=== PATIENT | female | born 1950 | race Caucasian/White ===

== ENCOUNTER → 2024-02-12 13:55 | Outpatient (REF) | payer MEDICARE, BC, SELFPAY | LOC: HWEVLT 13:55 | PROVIDERS: ATTENDING PHYSICIAN Radiology Vascular & Interventional Radiology | DX: I83.893 Varicose veins of bilateral lower extremities with other complications (principal) | CPT/HCPCS: 93970 ==

== ENCOUNTER → 2024-09-16 13:14 | Outpatient (REF) | payer MEDICARE, BC, SELFPAY | LOC: HWWDC 13:14 | PROVIDERS: ATTENDING PHYSICIAN Physician Assistant Medical | DX: Z12.31 Encounter for screening mammogram for malignant neoplasm of breast (principal) | CPT/HCPCS: 77063; 77067 ==

== ENCOUNTER 2025-02-09 19:51 | Inpatient (IN) | payer MEDICARE, BC, SELFPAY ==
[2025-02-09] VITALS (8 sets, daily range): BP systolic 122–170; BP diastolic 65–92; BMI 23.7; BMI 23.9
--- NOTE | 2025-02-09 12:27 | ED.GENMED ---
History of Present Illness
General
Chief Complaint: Flank Pain
Source: patient
Exam Limitations: none
Time Seen by Provider: 02/09/25 12:09
Nursing documentation reviewed up to this point in time: agreed with
History of Present Illness
History of Present Illness:
The patient is a 74-year-old female presenting with right-side abdominal and back pain radiating down her leg. The pain began yesterday. Initially, the pain was intermittent but became constant today. The patient reports nausea, having experienced
'a couple gags' and vomiting. She denies fever and urinary discomfort. patient was recently diagnosed with a UTI by her family doctor last week and is currently taking Macrobid. She describes the pain as starting in the right side and moving down
to her groin and leg. She notes tenderness in the right lower quadrant. The patient took ibuprofen, which provided some relief. Movement exacerbates the pain, and she describes it as sore currently.
Past History
Past History
ED Past Medical History: HTN, Hypercholesterolemia and Other (Kidney stones)
ED Past Surgical History: Other ( and colon cancer)
Social History
Tobacco: Non-smoker
Alcohol: Occasional
Drug: None
Personal:
Living: with family
Review of Systems
Review of Systems
Allergies reviewed?: Yes
All Other Systems: ROS reviewed and negative except as documented in HPI and ROS
Constitutional: Reports no symptoms; Denies fever, fatigue or chills
Respiratory: Reports no symptoms
Cardiac: Reports no symptoms
ABD/GI: Reports abdominal pain, nausea, vomiting and other (Dry heaving vomiting)
: Reports no symptoms; Denies flank pain
Musculoskeletal: Reports back pain (Right lower back pain)
Skin: Reports no symptoms
Neurological: Reports no symptoms
Psychiatric: Reports no symptoms
Phy Exam
General Physical Exam
General Presentation: no apparent distress
General age: appears stated age
General Skin: warm and dry
General Habitus: normal
General Mental: alert
General Hydration: appears well hydrated
Cardiovascular Exam
Cardiovascular Exam: regular rate/rhythm, no murmur and normal peripheral pulses
Pulmonary Exam
Pulmonary Exam: lungs clear and no respiratory distress
Gastrointestinal Exam
Gastrointestinal Exam: soft and other (+ tender rlq )
Neurological Exam
Neurological Exam: alert and oriented x3
Musculoskeletal Exam
Musculoskeletal Exam: full ROM
Skin Exam
Skin Exam: normal color and warm/dry
Psychiatric Exam
Psychiatric Exam: normal mood/affect
Course
Orders/Labs/Results
Orders:
Orders
02/09/25 12:45
CT Abd/pel W Iv And Oral Contr Urgent
Comment:
Reason For Exam: rlq pain
IV Insert/Care/Rem.- Treatment PRN
0.9% Sodium Chloride 1000 ml [Nss] 1,000 ml IV BOLUS
Iohexol [Omnipaque] See Protocol PO NOW STA
02/09/25 12:55
Complete Blood Count/With Diff Urgent
Comprehensive Metabolic Panel Urgent
Lipase Urgent
Urinalysis Reflex To Culture Urgent
Date Specimen was Collected: 02/09/25
Time Specimen was Collected: 12:46
Urine Microscopic Reflex Cult Urgent
02/09/25 12:58
Ondansetron Injectable [Zofran] 4 mg .ROUTE .[facility]
Ondansetron Injectable [Zofran] 4 mg IV NOW STA
02/09/25 13:11
Morphine Sulfate 2 mg IV NOW STA
02/09/25 Dinner
Regular
At Your Request: Full Participation
Does patient need a safe tray?: No
02/09/25 18:24
Morphine Sulfate 4 mg IV NOW STA
02/09/25 18:25
US Pelvis Only (non-obstetric) Urgent
Comment:
Reason For Exam: rlq pain/ mass
02/09/25 18:55
Admit/Transfer Patient As Directed
Co-Sign Provider:
Level of Care: Inpatient admission
Assign to:: Medical/Surgical
Physician / Group: Edna
Diagnosis: Adnexal mass
Reason for Hospitalization: painful adnexal mass
Expected length of stay greater than two midnights?: Yes
ELOS- Estimated Length of Stay in days: 2
I certify the patient meets the requirements for IP care: Yes
PRN Pain Medication Management As Directed
May give lesser potent ordered pain med per pt: Yes
preference::
Protocol:: Medication orders for pain may be administered in a
manner that supports deferring to patient preference
when the pt is:
- Requesting an ordered lesser potent pain medication.
Least to most potent pain medications are defined
as: acetaminophen < NSAID < tramadol < opioids
(morphine, oxycodone, hydromorphone).
- Requesting a lesser dose of the same medication IF
ORDERED.
- Requesting a less intrusive route of administration
if both routes are prescribed by the provider (PO <
IV).
02/09/25 18:57
Code Status As Directed
Resuscitation Status: Full Code
02/09/25 20:42
Acetaminophen [Tylenol] 650 mg PO Q4HPRN PRN
Bisacodyl [Dulcolax] 10 mg RECTAL [id number] PRN
Docusate W/Senna [Senokot-S] 1 tablet PO BIDPRN PRN
Ketorolac [Toradol] 10 mg IV Q6HPRN PRN
Morphine Sulfate 2 mg IV Q4HPRN PRN
Nitrofurantoin Monohydrate [Macrobid] 100 mg PO BID
Ondansetron Injectable [Zofran] 4 mg IV Q6HPRN PRN
Polyethylene Glycol Powder [Miralax] 17 grams PO DAILYPRN PRN
02/09/25 20:42
Activity As Directed
Activity Level: With Assistance
Vital Signs As Directed
Frequency: Per unit guidelines
Pulse Ox/spot Check [RESP] Routine
Quantity: 1
DX Deep Vein Thrombosis Video Routine
02/09/25 22:00
Diltiazem Extended Release [Cardizem Cd] 180 mg PO HS
02/10/25 06:39
Basic Metabolic Panel IN AM
CA 125 IN AM
Complete Blood Count/No Diff IN AM
02/10/25 18:00
Atorvastatin [Lipitor] 20 mg PO QPM
Enoxaparin Sodium [Lovenox] 40 mg SC QPM
Abnormal Lab Results
02/09/25
12:55
MCH 32.8 H pg
(27.0-31.0)
MPV 11.9 H fL
(7.4-10.4)
Absolute Lymphs (auto) 0.8 L 10^3/uL
(1.2-3.4)
Neutrophils % 79.6 H %
(42.2-75.2)
Lymphocytes % 10.9 L %
(20.5-51.1)
Creatinine 0.5 L mg/dL
(0.6-1.0)
Glucose 120 H mg/dl
(70-99)
Calcium 10.5 H mg/dl
(8.4-10.2)
Urine Ketones 1+ A
(Negative)
Urine Bacteria (Reflex) Few A
(Negative)
Urine Albumin (Reflex) 1+ A
(Neg - Trace)
02/09/25 12:55
02/09/25 12:55
Vital Signs
Initial and Last Documented VS:
Initial Vital Signs
Temp Pulse Resp BP Pulse Ox
98.3 F 81 18 170/78 97
02/09/25 11:14 02/09/25 11:14 02/09/25 11:14 02/09/25 11:14 02/09/25 11:14
Last Documented Vital Signs
Temp Pulse Resp BP Pulse Ox
98.3 F 82 16 122/65 96
02/09/25 23:00 02/09/25 23:00 02/09/25 23:00 02/09/25 23:00 02/09/25 23:00
MDM/Problems Addressed
Differential Diagnosis Includes:
The Differential Diagnosis includes, in no particular order and is not limited to:. Kidney stones
Appendicitis. Urinary tract infection Diverticulitis. Pyelonephritis Musculoskeletal pain Gallstones
Hernia
MDM/Problems Addressed:
Patient is a 74-year-old female who presents to the ER with right-sided abdominal pain into back. Patient has required IV narcotics here intermittently uncomfortable. CAT scan was done which is a large slightly complex right adnexal cystic mass
differential includes neoplasm less likely torsion recommended dedicated pelvic ultrasound.
I did review all findings the patient the patient required IV pain medications would recommend admission. Additional morphine given. Pelvic ultrasound ordered.
*Radiology
Radiology exam reviewed: radiology read reviewed
*Pulse Oximetry
Patient hypoxic: no
*Critical Care Note
Total Time (30-74mins, 75-104mins- exclusive of procedures): Not Applicable
ED Attending Note
-
Portions of this chart may have been created with voice recognition software.� Occasional wrong word or��sound alike� substitutions may have occurred due to the inherent limitations of voice recognition software.
Discharge Plan
Departure
Patient Disposition: Admit
Date of Disposition: 02/09/25
Time of Disposition: 18:28
Admit to doctor: hospitalist
Presentation/result/management discussed w/ accepting MD/DO: Hospitalist
Patient with high blood pressure during this ER visit?: Yes
Condition: Fair
Covid-19: Not Applicable
Discharge Problem:
ovarian mass
Interventions
Interventions:
*Risk Screen - Suicide Last Done: 02/09/25 21:00
*General Assessment Last Done: 02/09/25 11:14
*Neglect/Abuse Screening Last Done: 02/09/25 13:10
*ED- Fall Risk Assessment Last Done: 02/09/25 13:10
*ED COVID-19 Vaccine History Last Done: 02/09/25 21:00
*Nursing Disposition Last Done: 02/09/25 20:41
RD-Kgckan-Nvvjhkymri Assessment Last Done: 02/09/25 13:10
ED-Female Genitourinary Assessment Last Done: 02/09/25 13:10
Discharge Date and Time
Discharge Date/Time: 02/09/25 20:42
[2025-02-09] MEDS: ZOFRAN 4 MG IV (13:02)
[2025-02-09] MEDS: OMNIPAQUE 50 ML PO (13:02)
[2025-02-09] MEDS: NSS 1000 IV (13:03)
[2025-02-09 13:04] LABS: % Basophils 0.4 % (0-2); % Eosinophils 0.3 % (0-6); % Immature Granulocytes 0.3 % (0-0.5); % Lymphocytes 10.9 % (20.5-51.1); % Monocytes 8.5 % (1.7-9.3); % Neutrophils 79.6 % (42.2-75.2); Absolute Lymphocytes 0.8 10^3/uL (1.2-3.4); Absolute Monocytes 0.6 10^3/uL (0.1-0.6); Absolute Neutrophils 5.8 10^3/uL (1.4-6.5); Hematocrit 43.5 % (37.0-47.0); Hemoglobin 14.8 g/dL (12.0-16.0); Mean Corpuscular Hgb 32.8 pg (27.0-31.0); Mean Corpuscular Volume 96.5 fL (81.0-99.0); Mean Platelet Volume 11.9 fL (7.4-10.4); Nucleated Red Blood Cells % 0 %; Platelet Count 168 10^3/uL (130-400); Red Blood Cell Count 4.51 10^6/uL (4.20-5.40); Red Cell Dist. Width 13.1 % (11.5-14.5); White Blood Cell Count 7.3 10^3/uL (4.8-10.8)
[2025-02-09 13:06] LABS: Urine Albumin 1+ (Neg - Trace); Urine Bilirubin Negative (Negative); Urine Character Clear (Clear); Urine Color Yellow; Urine Glucose Negative (Negative); Urine Ketone 1+ (Negative); Urine Leukocyte Negative (Negative); Urine Nitrite Negative (Negative); Urine Occult Blood Negative (Negative); Urine Urobilinogen Negative (Neg - 1+)
[2025-02-09] MEDS: MORPHINE SULFATE 2 MG IV (13:14)
[2025-02-09 13:32] LABS: ALT (SGPT) 24 U/L (0-35); AST (SGOT) 31 U/L (14-36); Albumin 4.5 g/dl (3.5-5.0); Alkaline Phosphatase 112 U/L (38-126); Blood Urea Nitrogen 14 mg/dl (7-17); Calcium 10.5 mg/dl (8.4-10.2); Carbon Dioxide 26 mmol/L (22-30); Chloride 105 mmol/L (98-107); Estimated Creatinine Clearance 79 ml/min; Glucose 120 mg/dl (70-99); Lipase 236 U/L (23-300); Potassium 4.2 mmol/L (3.5-5.1); Sodium 138 mmol/L (135-145); Total Bilirubin 0.5 mg/dl (0.2-1.3); Total Protein 7.6 g/dl (6.3-8.2); eGFR > 60.00
[2025-02-09 13:50] LABS: Urine Bacteria Few (Negative); Urine Mucus Moderate; Urine Red Blood Cell 0-2 /HPF (0-2)
[2025-02-09 14:35] LABS: Urine Squamous Cell 0-2 /LPF (Few)
--- NOTE | 2025-02-09 18:35 | HPS.HSE ---
Family Physician
-
Family Physician: Corinne Crump
Chief Complaint
-
Abdominal pain
History of Present Illness
Patient is a 74-year-old female with past medical history of colon cancer s/p resection, hypertension presenting to the emergency department with 2 right-sided abdominal and back pain radiating down to her leg.
Patient reports onset of symptoms at 1 year ago. Initially intermittent but now constant. She reports nausea and occasional episode of vomiting. She denies any dysuria. She denies urinary frequency or urgency. She had been recently diagnosed
with a urinary tract infection by PMD and is currently on Macrobid. She denies having any diarrhea. She denies any melena or hematochezia. Patient reports tenderness in the right lower quadrant for which she took ibuprofen with some improvement.
Pain is worse with movement. She denies any abdominal bloating.
She reports history of colon cancer status post resection. She stated it was stage I at a time and did not receive any adjuvant chemotherapy or radiation treatment.
In the emergency department patient was afebrile, blood pressure of 160/82 with a pulse rate of 98 satting 96% on room air.
LFTs were within normal limits. Lipase was normal. UA was unremarkable. The CBC was completely within normal limits. Electrolytes were normal. BUN and creatinine were normal.
A CT of the abdomen pelvis shows a large slightly complex right adnexal cystic mass measuring 16 x 9.5 x 11 cm which is new from prior CT in 2021. There is also left hepatic lobe atrophy with diffusely dilated intrahepatic biliary ducts throughout
with shrunken left hepatic lobe which appeared chronic.
Medical History
Past Medical History
Past Medical History: Reports Other
Additional Past Medical History:
History of colon cancer status post bowel resection
Hypertension
Skin cancer
Past Surgical History: Reports Bowel Resection and
Social History
Tobacco: Non-smoker
Alcohol: None
Drug: None
Personal:
Living: With Family
Family History
Family History: Not pertinent
Allergies / Home Medications
Allergies reflects when Allergies were last updated in [facility].
Home Medications with original date entered in [facility]
Allergy/Medication List:
Allergies
Allergy/AdvReac Type Severity Reaction Status Date / Time
Penicillins Allergy Unknown Verified 02/09/25 11:13
Home Medications
atorvastatin 20 mg tablet 20 mg PO QPM High cholesterol 01/25/22
diltiazem HCl 180 mg capsule,extended release 24 hr 180 mg PO HS Blood pressure 01/25/22
ibandronate 150 mg tablet 150 mg PO QMONTH 02/09/25
ibuprofen 400 mg tablet 400 mg PO Q6HPRN PRN mild pain 02/09/25
nitrofurantoin monohydrate/macrocrystals 100 mg capsule (Macrobid) 100 mg PO BID 02/09/25
therapeutic multivitamin 1 tab PO DAILY 02/09/25
Review of Systems
-
Constitutional: Reports No Symptoms
EENT: Reports No Symptoms
Respiratory: Reports No Symptoms
Cardiac: Reports No Symptoms
Abdomen/GI: Reports Abdominal Pain and Nausea
: Reports No Symptoms
Musculoskeletal: Reports No Symptoms
Skin: Reports No Symptoms
Neurological: Reports No Symptoms
Endocrine: Reports No Symptoms
Hematologic/Lymphatic: Reports No Symptoms
Psych: Reports No Symptoms
Physical Exam
Vital Signs
Vital Signs
Temp Pulse Resp BP Pulse Ox
98.3 F 98 18 163/82 96
02/09/25 11:14 02/09/25 17:12 02/09/25 17:12 02/09/25 17:12 02/09/25 17:12
Physical Exam
General: Well Developed, Well Nourished and No Apparent Distress
HEENT: NormoCephalic, Moist mucous membranes and Atraumatic
Respiratory: Clear
Cardiac: S1/S2 and Regular Rhythm; No Murmur or Rub
GI: Soft, Non Tender, Non Distended and Normal Bowel Sounds; No Organomegaly
Rectal: Deferred by Provider
Musculoskeletal: No Clubbing, No Cyanosis and No Edema
Skin: No Rash
Neuro: Nonfocal/grossly intact
Laboratory Results
-
02/09/25 12:55
02/09/25 12:55
Laboratory Results
Total Bilirubin 0.5 mg/dl (0.2-1.3) 02/09/25 12:55
AST 31 U/L (14-36) 02/09/25 12:55
ALT 24 U/L (0-35) 02/09/25 12:55
Alkaline Phosphatase 112 U/L (38-126) 02/09/25 12:55
Lipase 236 U/L (23-300) 02/09/25 12:55
Data Reviewed
-
CT Scan: Report Reviewed by me
Lab Data: Labs Reviewed by me
Old Records: Reviewed
Impression/Plan
-
IMPRESSION:
74-year-old female with past medical history of colon cancer status post resection, hypertension, hyperlipidemia presenting to the emergency department with right-sided abdominal and flank pain associated nausea and vomiting found to have a rather
large adnexal cystic mass consisting of a 16.1 x 9.5 x 11.3 cm slightly complex cystic mass concerning for ovarian neoplasm and less likely ovarian torsion. She currently reports the pain of 4 out of 10. No kidney stones. No urinary symptoms at
moment. No fevers or chills.
PLAN:
1. Cystic Adnexal Mass, slightly complex concerning for neoplasm. Unlikely torsion. Severe pain requiring narcotics.
- admit to med/surg observation
- pelvic u/s,MRI w/ w/o contrast
- check ca 125, CEA and CA 19-9
- pain control
- farm mechanic consulted and notified
2. Liver lobe atrophy and ductal dilation with some concerning for malignant/metastatic process - New from prior. Normal lfts. No RUQ pain or discomfort. Normal lipase.
- obtaining mri of the abdomen as well as pelvis above
- likely outpatient GI depending on mri findings
continue her home meds and complete course of macrobid (day 03/07 today)
DVT PPX - lovenox sq
Code status - Full code
[2025-02-09] MEDS: MORPHINE SULFATE 4 MG IV (18:51)
[2025-02-09] MEDS: CARDIZEM CD 180 MG PO (21:17)
[2025-02-09] MEDS: MACROBID 100 MG PO (21:17)
--- NOTE | 2025-02-09 21:29 | PTCARENOTE ---
Patient arrived to unit around 20:40 with dx of adnexal Mass. Patient denies pain or discomfort at current time. AAOx3. Pleasant and cooperative with care. Oriented to unit. Call solorzano within reach.
--- NOTE | 2025-02-09 22:39 | CON.MD ---
Consultation - Medical
-
74-year-old female with history of stage I colon cancer, status post colon resection is admitted to the hospital due large cystic adnexal mass. She presented to the emergency room with worsening abdominal and back pain radiating down her legs.
Reported symptoms intermittently over the past year but more constant and worsening intensity which brought her to the hospital. Has some nausea, occasional vomiting. Recently diagnosed with UTI and treated with Macrobid. History obtained from
record.
Came to see patient but she is sleeping. Arousable.
Past medical history: colon cancer, skin cancer, hypertension
PSH: Bowel resection,
Allergy: Penicillin
Medications:
Atorvastatin 20 mg p.o. every afternoon
Diltiazem HCl 180 mg p.o. at bedtime
Ibandronate 150 mg monthly
Ibuprofen 400 mg every 6 hours as needed
Nitrofurantoin 100 mg p.o. twice daily
Multivitamin.
Social history:
Family history:
Review of systems does not add
Physical examination:
Vital signs: BP 147/82 pulse 89 temperature 98.3 respirations 14
Physical examination was not completed because the patient was sleeping when I came to see her.
Labs:
White blood cell count 7.3
H/H: 14.8/43.5
Platelet 168
Creatinine 0.5
AST 31
ALT 24
Glucose 120
Urinalysis negative nitrites negative leukocytes few bacteria 1+ albumin
Transabdominal pelvic ultrasound: uterus 6.1 x 1.9 x 3.6 cm. Uterus with homogeneous echotexture without focal mass. Endometrial stripe not visualized. Bilateral ovaries not visualized.
Large septated right adnexal cystic mass is present measuring approximately 12.2 x 7.5 x 16.5 cm. Bladder shows no gross abnormality. No free pelvic fluid.
CT abdomen/pelvis: Interval left hepatic lobe atrophy with diffusely dilated intrahepatic biliary ducts throughout the shrunken left hepatic lobe, new from prior although chronic appearing. Renal lesions compatible with simple cyst. Spleen adrenal
glands and pancreas within normal limits. Gallbladder without calcified stones. No aortic aneurysm. No enlarged lymph nodes free fluid or free air. Bowel without evidence of obstruction or adjacent inflammatory changes. Normal appendix.
Bladder unremarkable.Large slightly complex right adnexal cystic mass measuring 16.1 x 9.5 x 11.3 cm, new from prior. No suspicious osseous lesions are identified.
Impression:
1. Abdominal pain
2. Large septated right adnexal cystic mass 16.5 x 9.5 x 11[address] (16.5 x 7.5 x 12.2 cm on Jj abdominal ultrasound)
3. History of colon cancer status post colon resection
4. History of skin cancer
5. History of hypertension
Plan.
1. Ordered CA125, CEA and CA 19-9.
2. Recommend MRI abdomen/pelvis with and without IV contrast.
3. Will ultimately need surgical excision. Recommend waiting for imaging and lab results. Etiologies include benign cystadenoma, borderline tumor, Kruckenberg tumor, cystadenocarcinoma.
Further discussion will need to be held with the patient tomorrow. As noted above, I was involved in patient care with with other patients earlier in the evening and was unable to come for consult until 10:40 PM. Patient was in her room sleeping
at the time. She appears comfortable. I told her we will come to speak with her tomorrow.
Consultation
-
Date/Time Consultation Requested: 02/09/25 8pm
Date/Time Consultation Performed: 02/09/25 10:40pm
Requesting Provider: Hospitalist
Performing Provider: Esther Durant DO
Reason for Consultation: adnexal cystic mass, abd pain
[2025-02-10 07:28] LABS: Hematocrit 40.8 % (37.0-47.0); Hemoglobin 13.8 g/dL (12.0-16.0); Mean Corp Hgb Conc. 33.8 g/dL (33.0-37.0); Mean Corpuscular Hgb 33.3 pg (27.0-31.0); Mean Corpuscular Volume 98.3 fL (81.0-99.0); Mean Platelet Volume 12.5 fL (7.4-10.4); Platelet Count 161 10^3/uL (130-400); Red Blood Cell Count 4.15 10^6/uL (4.20-5.40); Red Cell Dist. Width 13.2 % (11.5-14.5); White Blood Cell Count 5.3 10^3/uL (4.8-10.8)
[2025-02-10] MEDS: MACROBID PO (07:45)
[2025-02-10] MEDS: ZOFRAN 4 MG IV (07:46)
[2025-02-10 08:00] VITALS: BP 140/64
[2025-02-10 08:10] LABS: Blood Urea Nitrogen 8 mg/dl (7-17); Calcium 10.1 mg/dl (8.4-10.2); Carbon Dioxide 28 mmol/L (22-30); Chloride 110 mmol/L (98-107); Estimated Creatinine Clearance 80 ml/min; Glucose 99 mg/dl (70-99); Potassium 4.4 mmol/L (3.5-5.1); Sodium 142 mmol/L (135-145); eGFR > 60.00
[2025-02-10 08:25] LABS: CEA 1.56 ng/ml
--- NOTE | 2025-02-10 09:39 | CM ---
Addendum entered by Maria Eugenia Cedillo 02/10/25 09:46:
Pharmacy verified: [facility] @ [address] [place] [address]
Original Note:
Met with patient at bedside; initial assessment completed
IMM benefit explained; form signed @ 1055
Patient and spouse live in a multilevel home; 2 steps to enter; 13 steps to 2nd floor; railing present on stairs; powder room 1st floor 2nd floor bath has stall shower
PLOF: patient reported she is independent with ambulation, stairs, and ADLs; retired; drives
NO SNF or Home Health utilization services
will transport home
Discharge plan to be determined pending hospital course; Pathological Technician will monitor for discharge needs
--- NOTE | 2025-02-10 11:42 | CON.GI ---
Addendum entered and electronically signed by Soahm Tao MD 02/10/25 13:21:
Patient seen and examined, agree with nurse practitioner note. The patient is a 74-year-old female with past medical history as noted who presents with right lower quadrant pain. On imaging she was noted to have a 16 cm right adnexal mass, though
incidentally also noted to have severe atrophy of the left hepatic lobe with intrahepatic duct dilation and possible ill-defined region in this area. She been having some right lower quadrant discomfort, though no other abdominal complaints. On
imaging from 2021 there was no atrophy or duct dilation. Her LFTs are normal. On exam she does have fullness in the right lower quadrant with mild tenderness.
1. Adnexal mass: Seen by TAPPER SUPERVISOR, concerning for malignancy. She will be following up with TAPPER SUPERVISOR onc for further workup and treatment, likely at [facility].
2. Abnormal imaging: With severe atrophy and duct dilation of the left hepatic lobe, with question of small mass in that area, though somewhat reassuring that her LFTs are normal and given the atrophy has likely been more chronic. While malignancy
is not completely excluded this does seem a bit less likely. I had extensive discussion with her and her . I will email Dr. Diop at [facility] to help expedite appointment, as this will need further investigation,
possibly spyglass, though the timing of this may vary depending on the workup and treatment of her adnexal mass. There is no GI contraindication discharge at this point. Will sign off for now, please go back with any further questions.
Original Note:
Consultation
-
Date/Time Consultation Requested: 02/10/25 1130
Date/Time Consultation Performed: 02/10/25 1145
Requesting Provider: Esequiel Tapia MD
Performing Provider: JON Samuel, Heri Tao MD
Reason for Consultation: abnormal imaging
Medical History
Chief Complaint / HPI
Chief Complaint: lower abdominal, groin and leg pain
History of Present Illness:
Pt is a 74yo with hx colon CA with resection 2019 at [facility], skin CA with prior Mohs surgery , HTN, osteopenia, kidney stones with onset of right lower abdomen, groin and back pain. She admits to recent eval with PCP with possible UTI with abx
use but persistent symptoms. On admission she is noted with calcium 10.5 with otherwise stable labs. Imaging with CT noted Large slightly complex right adnexal cystic mass measuring 16.1 x 9.5 x 11.3 cm, new from prior. Differential includes
ovarian neoplasm, less likely ovarian torsion. Recommend further evaluation with dedicated pelvic ultrasound. Also noted Interval left hepatic lobe atrophy with diffusely dilated intrahepatic biliary ducts throughout the shrunken left hepatic lobe,
new from prior although chronic appearing. Underlying malignancy not excluded. Consider nonemergent evaluation with dedicated MRI/MRCP abdomen without and with gadolinium contrast. She did proceed with US pelvis with again large septated right
adnexal cystic mass possible ovarian origin suggesting neoplasm and further follow up MRI with Atrophy and severe intrahepatic ductal dilatation of the left hepatic lobe. 1.8 x 1.6 cm ill-defined region of hypoenhancement and mild restricted
diffusion in the central left hepatic lobe proximal to the region of biliary ductal dilatation, suspicious for an obstructing mass. Cholangiocarcinoma would be the primary consideration given the degree of ductal dilatation. Soft tissue sampling is
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 Thin enhancing internal septations, but no solid nodular postcontrast enhancement, which would favor a
cystadenoma rather than a cystadenocarcinoma. However, surgical consultation is still recommended.
In review with patient she denies wt loss, bloating but has had intermittent pain. Per spouse she was noted with increased GERD for 2 weeks then noted right lower abdominal pain with pain into right groin and leg. Pt admits to feeling better
today. She admits to some vomiting yesterday but denies any odynophagia, dysphagia, diarrhea, constipation or rectal bleeding. No hx EGD in past.
Past Medical History
Past Medical History: Cancer (colon CA, basal cell CA), HTN and Other (osteopenia, kidney stones )
Past Surgical History: Bowel Resection (for colon CA), and Other (mohs surgery )
Social History
Tobacco: Non-Smoker
Alcohol: Occasional
Drug: None
Personal:
Living: With Family
Family History
Family History: Other (no family hx colon CA or other GI cancers )
Allergies / Home Medications
Allergy/AdvReac Type Severity Reaction Status Date / Time
Penicillins Allergy Unknown Verified 02/09/25 11:13
�Medication �Instructions �Recorded
atorvastatin 20 mg tablet 20 mg PO QPM High cholesterol 01/25/22
diltiazem HCl 180 mg 180 mg PO HS Blood pressure 01/25/22
capsule,extended release 24 hr
ibandronate 150 mg tablet 150 mg PO QMONTH 02/09/25
ibuprofen 400 mg tablet 400 mg PO Q6HPRN PRN mild pain 02/09/25
nitrofurantoin 100 mg PO BID 02/09/25
monohydrate/macrocrystals 100 mg
capsule (Macrobid)
therapeutic multivitamin 1 tab PO DAILY 02/09/25
Review of Systems
-
History Source: Patient and Family (spouse )
Constitutional: Reports No Symptoms
EENT: Reports No Symptoms
Respiratory: Reports No Symptoms
Cardiac: Reports No Symptoms
Abdomen/GI: Reports Abdominal Pain, Nausea, Vomiting (dry heaves ) and Other (recent GERD)
: Reports Other (recent concern for UTI)
Musculoskeletal: Reports Other (right leg pain )
Skin: Reports No Symptoms
Neurological: Reports Weakness
Endocrine: Reports No Symptoms
Hematologic/Lymphatic: Reports No Symptoms
Vital Signs
Temp Pulse Resp BP Pulse Ox
98.3 F 79 18 140/64 97
02/10/25 08:00 02/10/25 08:00 02/10/25 08:00 02/10/25 08:00 02/10/25 08:00
Physical Exam
Exam
General: Well Developed, Well Nourished and No Apparent Distress
HEENT: Normocephalic and Anicteric
Respiratory: Clear
Cardiac: Regular Rhythm
GI: Soft, Non Tender, Non Distended and Other (slight right sided )
Musculoskeletal: No Clubbing and No Cyanosis
Skin: Warm and Dry
Neuro: Awake, Alert and AO x 3
Psych: Calm
Results
WBC 5.3 10^3/uL (4.8-10.8) 02/10/25 06:39
Hgb 13.8 g/dL (12.0-16.0) 02/10/25 06:39
Hct 40.8 % (37.0-47.0) 02/10/25 06:39
MCV 98.3 fL (81.0-99.0) 02/10/25 06:39
Plt Count 161 10^3/uL (130-400) 02/10/25 06:39
Absolute Neuts (auto) 5.8 10^3/uL (1.4-6.5) 02/09/25 12:55
Sodium 142 mmol/L (135-145) 02/10/25 06:39
Potassium 4.4 mmol/L (3.5-5.1) 02/10/25 06:39
Chloride 110 mmol/L (98-107) H 02/10/25 06:39
Carbon Dioxide 28 mmol/L (22-30) 02/10/25 06:39
BUN 8 mg/dl (7-17) 02/10/25 06:39
Creatinine 0.5 mg/dL (0.6-1.0) L 02/10/25 06:39
Calcium 10.1 mg/dl (8.4-10.2) 02/10/25 06:39
Total Bilirubin 0.5 mg/dl (0.2-1.3) 02/09/25 12:55
AST 31 U/L (14-36) 02/09/25 12:55
ALT 24 U/L (0-35) 02/09/25 12:55
Alkaline Phosphatase 112 U/L (38-126) 02/09/25 12:55
Lipase 236 U/L (23-300) 02/09/25 12:55
Diagnostic Image Results:
02/09/25 CT Abd/pel W Iv And Oral Contr
1. Large slightly complex right adnexal cystic mass measuring 16.1 x 9.5 x 11.3 cm, new from prior. Differential includes ovarian neoplasm, less likely ovarian torsion. Recommend further evaluation with dedicated pelvic ultrasound.
2. Interval left hepatic lobe atrophy with diffusely dilated intrahepatic biliary ducts throughout the shrunken left hepatic lobe, new from prior although chronic appearing. Underlying malignancy not excluded. Consider nonemergent evaluation with
dedicated MRI/MRCP abdomen without and with gadolinium contrast.
02/09/25 US Pelvis Only (non-obstetric)
1. Large septated right adnexal cystic mass, possibly of ovarian origin suggesting neoplasm.
Recommend nonemergent workup with MRI pelvis without and with gadolinium contrast.
2. Nonvisualization of the bilateral ovaries.
02/10/25 MR Abdomen W/o & W Contrast; MR Pelvis W/o & With Contrast
Atrophy and severe intrahepatic ductal dilatation of the left hepatic lobe. 1.8 x 1.6 cm ill-defined region of hypoenhancement and mild restricted diffusion in the central left hepatic lobe proximal to the region of biliary ductal dilatation,
suspicious for an obstructing mass. Cholangiocarcinoma would be the primary consideration given the degree of ductal dilatation. Soft tissue sampling is recommended for more definitive characterization.
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 Thin enhancing internal septations, but no solid nodular postcontrast enhancement, which would favor a cystadenoma rather than a cystadenocarcinoma. However, surgical
consultation is still recommended.
Prior GI Procedures:
EGD: none
Colonoscopy: last October 2023 normal at [place] due 5 year follow up
Assessment / Plan
-
Pt is a 74yo with hx colon CA with resection 2019 at [facility], skin CA with prior Mohs surgery , HTN, osteopenia, kidney stone with onset of right lower abdomen, groin and back pain. She admits to recent eval with PCP with possible UTI with abx
use but persistent symptoms. On admission she is noted with calcium 10.5 with otherwise stable labs. Imaging with CT noted Large slightly complex right adnexal cystic mass measuring 16.1 x 9.5 x 11.3 cm, new from prior. Differential includes
ovarian neoplasm, less likely ovarian torsion. Recommend further evaluation with dedicated pelvic ultrasound. Also noted Interval left hepatic lobe atrophy with diffusely dilated intrahepatic biliary ducts throughout the shrunken left hepatic lobe,
new from prior although chronic appearing. Underlying malignancy not excluded. Consider nonemergent evaluation with dedicated MRI/MRCP abdomen without and with gadolinium contrast. She did proceed with US pelvis with again large septated right
adnexal cystic mass possible ovarian origin suggesting neoplasm and further follow up MRI with Atrophy and severe intrahepatic ductal dilatation of the left hepatic lobe. 1.8 x 1.6 cm ill-defined region of hypoenhancement and mild restricted
diffusion in the central left hepatic lobe proximal to the region of biliary ductal dilatation, suspicious for an obstructing mass. Cholangiocarcinoma would be the primary consideration given the degree of ductal dilatation. Soft tissue sampling is
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 Thin enhancing internal septations, but no solid nodular postcontrast enhancement, which would favor a
cystadenoma rather than a cystadenocarcinoma. However, surgical consultation is still recommended.
-onset of right lower abdomen, groin, leg pain
-imaging with concern for left hepatic lobe atrophy with diffusely dilated intrahepatic biliary ducts with concern for obstructing mass- cholangio CA
-right adnexal cystic mass
-hx colon CA 2019 with resection and no further chemo or radiation needed
-calcium 10.5
-recent abx for UTI
other med problems:
-skin CA with mohs surgery
-HTN
-osteopenia
-renal stones
PLAN:
etiology of pain on admission related pelvic mass vs other
pain now improved
pt has discussed with TAPPER SUPERVISOR need for likely resection of pelvic mass
also noted with concern for biliary dilatation and obstructing mass with cholangio CA
will review with Dr. Tao imaging as may need further ERCP and timing- with normal LFT's - inpatient vs outpatient as currently with stable symptoms and labs
continue regular diet
CEA 1.56, Ca 19-9, CA 125 pending will add AFP
-
-
Thank you for consultation and allowing me to participate in the patient's care. Please call the surgeon partner GI physician during the after hours with any questions or concerns.
--- NOTE | 2025-02-10 12:14 | W.PN.OBG.DWH ---
Today's Communication / Plan
-
Await tumor markers
Consider transfer to [facility]
Primary service to diacuss upper abominal findings on MRI
Assessment/Plan
-
RIGHT adnexal mass-advised pt that mass will need to be removed, preferably with JACQUARD CARD CUTTER Onco involvement. As Dr Garza not available for next 10 days, do not feel pt can wait that long to begin evaluation with him. As patient's prior surgery was at
[facility], would make sense to transfer her to [facility] if not stable enought to send home for outpatient evaluation.
Above reviewed with Dr Tapia via TT
Subjective Data
-
Patient reports pain improved, has not required pain meds since last night. Had med for nausea. MRI completed
Patient recently moved to the area, does not have a JACQUARD CARD CUTTER. Colorectal surgery done at [facility] in 2019.
Advised pt that CEA was normal, other markers pending. Reviewed MRI findings supportive of RIGHT adnexal mass, no way to tell for certain whether benign or not. Did not address the upper abdominal findings. was
Objective Data
-
Laboratory Results
02/10/25 06:39
02/10/25 06:39
Vital Signs
Temp Pulse Resp BP Pulse Ox
98.3 F 79 18 140/64 97
02/10/25 08:00 02/10/25 08:00 02/10/25 08:00 02/10/25 08:00 02/10/25 08:00
Abdomen-soft, nondistended, nontender, good bowel sounds. Mass effect noted in right lower quadrant, nontender
Extremities-no calf pain
--- NOTE | 2025-02-10 13:08 | W.PN.HOSP.TC ---
Today's Communication/Plan
-
See PN
Assessment / Plan
Assessment / Plan
74yo F with PMHx of HTN, HLD, osteoporosis, colon CA s/p resection in [facility] came with worsening R lower abdominal pain, CT showed large complex right adnexal cystic mass measuring 16 x 9.5 x 11 cm that thought to be a reason for the pain.
A/P:
#RLQ abdominal pain
most likely 2/2 R cystic mass
MRI hsowed: Large cystic mass with multiple internal septations in the pelvis and right lower quadrant of the abdomen measuring 13.4 x 12.3 x 12.8 cm
EMULSION COATER consult: requesting expedited surgical resection, since EMULSION COATER/Onc unavailable in for 10 days and EMULSION COATER feels that tghis will not be appropriate for the patient to await that time - recommended for the transfer to [facility]
CEA WNL
CA 19-9, CA 125, AFP pending
#Atrophy and severe intrahepatic ductal dilatation of the left hepatic lobe. 1.8 x 1.6 cm ill-defined region of hypoenhancement and mild restricted diffusion in the central left hepatic lobe proximal to the region of biliary ductal dilatation,
suspicious for an obstructing mass
GI consult
#[facility] HTN
cont hoem meds
DVT ppx lovenox
Full code
I have spent at least 58min reviewing chart, test results, communication with consultnats, family and providing direct patient care
Anticipated Discharge: 24 - 48 hours
Subjective/Interval History
-
Date of Service: February 10, 2025
Objective Data
-
Labs:
Laboratory Results
02/10/25
06:39
WBC 5.3
Hgb 13.8
Hct 40.8
Plt Count 161
Sodium 142
Potassium 4.4
Chloride 110 H
Carbon Dioxide 28
BUN 8
Creatinine 0.5 L
Glucose 99
Calcium 10.1
Vital Signs:
Vital Signs
Temp Pulse Resp BP Pulse Ox
98.3 F 79 18 140/64 97
02/10/25 08:00 02/10/25 08:00 02/10/25 08:00 02/10/25 08:00 02/10/25 08:00
Review of Systems
-
History Source: Patient
All other systems: Reviewed and negative
Abdomen/GI: Reports Abdominal Pain
Physical Exam
-
General: No Apparent Distress
HEENT: Normocephalic
Respiratory: Clear to Auscultation
GI: Soft, Nontender and Nondistended
Genito-urinary: No Costovertebral Tender
Musculoskeletal: No Clubbing, No Cyanosis and No Edema
Neuro: Awake, Alert, Oriented and AO x 3
Psych: Calm
--- NOTE | 2025-02-10 15:30 | W.PN.UPDATE ---
Update Note
Progress Note Update
I communicated with Dr. Diop at the [facility]. He suggested to wait until M[employer] ANALYSIS WELL LOGGING OPERATOR assessment is complete, stated if had advanced ovarian cancer the liver condition is not of consequence. I set up office visit with me in 3 weeks, will
review her status then. I discussed with the patient and her .
[2025-02-10 16:03] VITALS: BP 137/82
[2025-02-10] MEDS: LOVENOX 40 MG SC (17:26)
[2025-02-10] MEDS: LIPITOR 20 MG PO (17:26)
[2025-02-10] MEDS: CARDIZEM CD 180 MG PO (21:20)
[2025-02-10 23:38] VITALS: BP 143/67
[2025-02-11 07:00] VITALS: BP 100/57
--- NOTE | 2025-02-11 09:17 | W.PN.HOSP.TC ---
Today's Communication/Plan
-
dc
Assessment / Plan
Assessment / Plan
74yo F with PMHx of HTN, HLD, osteoporosis, colon CA s/p resection in [facility] came with worsening R lower abdominal pain, CT showed large complex right adnexal cystic mass measuring 16 x 9.5 x 11 cm that thought to be a reason for the pain. Lesion
confirmed on MRI as well as new finding of possible 1.8 x 1.6 cm ill-defined region of hypoenhancement and mild restricted diffusion in the central left hepatic lobe proximal to the region of biliary ductal dilatation, suspicious for an obstructing
mass.
As per request from E COMMERCE MARKETING MANAGER - discussed with [facility] E COMMERCE MARKETING MANAGER/ONC on 02/10/25. Decision is for outpatient expedited follow up as this will alolow more rapid patient evaluation and management. Same agreed with patient and her . business operations coordinator
was informed by and patient was in touch with them. Will have to call back with and insurance info. As per estimation - patient will be able to get appointment within a week.
GI discussed with [facility] GI , who will follow up with additional w/u after E [employer]ER[employer] MARKETING MANAGER plan will be established. LFT WNL so no concern for significant obstruction. Medically stable for d/c and patient was provided all necessary information to
establish outpatient follow up in [facility]. She verbalized understanding and agreement with plan and instructions.
A/P:
#RLQ abdominal pain
most likely 2/2 R cystic mass
MRI showed: Large cystic mass with multiple internal septations in the pelvis and right lower quadrant of the abdomen measuring 13.4 x 12.3 x 12.8 cm
E COMMER[employer] MARKETING MANAGER consult: requesting expedited surgical resection, since E COMMERCE MARKETING MANAGER/Onc unavailable in for 10 days and E COMMERCE MARKETING MANAGER feels that tghis will not be appropriate for the patient to await that time - recommended for the transfer to [facility]
CEA WNL
CA 19-9, CA 125, AFP pending
#Atrophy and severe intrahepatic ductal dilatation of the left hepatic lobe. 1.8 x 1.6 cm ill-defined region of hypoenhancement and mild restricted diffusion in the central left hepatic lobe proximal to the region of biliary ductal dilatation,
suspicious for an obstructing mass
GI consult
#[facility] HTN
cont hoem meds
DVT ppx lovenox
Full code
I have spent at least 58min reviewing chart, test results, communication with consultnats, family and providing direct patient care
Anticipated Discharge: Today
Subjective/Interval History
-
Date of Service: February 11, 2025
Objective Data
-
Vital Signs:
Vital Signs
Temp Pulse Resp BP Pulse Ox
98.9 F 86 16 100/57 95
02/11/25 07:00 02/11/25 07:00 02/11/25 07:00 02/11/25 07:00 02/11/25 07:00
I&O
02/10/25 02/11/25 02/12/25
06:59 06:59 06:59
Intake Total 960 / 960
Balance 960 / 960
Review of Systems
-
History Source: Patient
All other systems: Reviewed and negative
Physical Exam
-
General: No Apparent Distress
HEENT: Normocephalic
GI: Soft, Nontender and Nondistended
Neuro: Awake, Alert, Oriented and AO x 3
Psych: Calm
--- NOTE | 2025-02-11 09:23 | W.DCSUMMARY ---
Discharge Summary
Discharge Data
Date of Admission: 02/09/25
Date of Discharge: 02/11/25
-
Pending Results: No
Hospital Course
74yo F with PMHx of HTN, HLD, osteoporosis, colon CA s/p resection in [facility] came with worsening R lower abdominal pain, CT showed large complex right adnexal cystic mass measuring 16 x 9.5 x 11 cm that thought to be a reason for the pain. Lesion
confirmed on MRI as well as new finding of possible 1.8 x 1.6 cm ill-defined region of hypoenhancement and mild restricted diffusion in the central left hepatic lobe proximal to the region of biliary ductal dilatation, suspicious for an obstructing
mass.
As per request from DIRECTOR WATER AND WASTE SERVICES due to the need for mass resection - discussed with [facility] DIRECTOR WATER AND WASTE SERVICES/ONC on 02/10/25. Decision is for outpatient expedited follow up as this will allow more rapid patient evaluation and management. Same agreed with patient
and her . operations manager/coordinator was informed by and patient was in touch with them. Will have to call back with SS and insurance info. As per estimation - patient will be able to get appointment within a week. Patient is not in
distress, able to conduct usual ADL
GI discussed with [facility] GI , who will follow up with additional w/u after DIRECTOR WATER AND WASTE SERVICES plan will be established. LFT WNL so no concern for significant obstruction. Medically stable for d/c and patient was provided all necessary information to
establish outpatient follow up in [facility]. She verbalized understanding and agreement with plan and instructions.
I have spent at least 58min reviewing chart, test results, communication with consultants, family and providing direct patient care
Patient was managed for:
#RLQ abdominal pain 2/2 Large cystic mass with multiple internal septations
#Atrophy and severe intrahepatic ductal dilatation of the left hepatic lobe. 1.8 x 1.6 cm ill-defined region of hypoenhancement and mild restricted diffusion in the central left hepatic lobe proximal to the region of biliary ductal dilatation,
suspicious for an obstructing mass
#Essential HTN
Discharge Plan
-
Patient Disposition: Home (Routine Discharge)
Discharge Diagnosis/Procedures: R pelvic cyst
Diet: Regular
Referrals:
[facility] [Other] - in one to two days
Soham Tao MD [Active, Gastroenterology] - 03/09/25 7:30 am
Corinne Crump PA-C [Family Provider, [facility]]
Prescriptions:
Continued
diltiazem HCl 180 MG capsule,extended release 24hr
180 mg PO HS
atorvastatin 20 MG tablet
20 mg PO QPM
therapeutic multivitamin Tablet
1 tab PO DAILY
ibuprofen 400 mg Tablet
400 mg PO Q6HPRN PRN (Reason: mild pain)
nitrofurantoin monohyd/m-cryst [Macrobid] 100 mg Capsule
100 mg PO BID
Rx Instructions:
for 7 days starting 02/03/25
ibandronate 150 mg Tablet
150 mg PO QMONTH
Discharge Orders:
Discharge Patient (As Directed); Ordered 02/11/25
Ordered By: Esequiel Tapia
Discharge Date and Time
Print Language: NEPALESE
--- NOTE | 2025-02-11 10:44 | CM ---
CM reviewed chart, patient seen bedside with , for discharge today. IMM verbally reviewed, provided with copy, placed in chart. Patient denies needs from CM. CM will continue to follow for all discharge planning needs.
Plan; home with
[2025-02-11 15:43] LABS: AFP Male/Tumor Marker 4.96 ng/ml; CA 125 17.3 U/mL (0-35)
[2025-02-12 13:12] LABS: CA 19-9 3024 U/mL (<=35)
== END 2025-02-11 11:01 | disposition home or self-care (01) | DRG 755 ==
LOC: 4 WEST ACU 19:51
PROVIDERS: Nurse Practitioner; ADMITTING PHYSICIAN Internal Medicine; ATTENDING PHYSICIAN Internal Medicine; CONSULT PHYSICIAN Internal Medicine Gastroenterology; CONSULT PHYSICIAN Obstetrics & Gynecology; EMERGENCY PHYSICIAN Emergency Medicine; FAMILY PHYSICIAN Physician Assistant Medical
DX: C56.1 Malignant neoplasm of right ovary (principal); C22.1 Intrahepatic bile duct carcinoma; I10 Essential (primary) hypertension; E78.00 Pure hypercholesterolemia, unspecified; M81.0 Age-related osteoporosis without current pathological fracture; Z85.038 Personal history of other malignant neoplasm of large intestine; Z85.828 Personal history of other malignant neoplasm of skin; K21.9 Gastro-esophageal reflux disease without esophagitis; Z87.442 Personal history of urinary calculi; Z88.0 Allergy status to penicillin; Z90.49 Acquired absence of other specified parts of digestive tract
CPT/HCPCS: 72197; 74177; 74183; 76856; 80048; 80053; 81003; 81015; 82105; 82378; 83690; 85025; 85027; 86301; 86304; 96361; 96374; 96375; 96376; 99285; A9575; Q9967

== ENCOUNTER 2025-04-07 09:45 | Emergency (ER) | payer MEDICARE, BC, SELFPAY ==
[2025-04-07 09:46] VITALS: BMI 24.2
[2025-04-07 09:54] VITALS: BP 110/80
[2025-04-07 10:49] LABS: Hematocrit 41.6 % (37.0-47.0); Hemoglobin 14.1 g/dL (12.0-16.0); Mean Corp Hgb Conc. 33.9 g/dL (33.0-37.0); Mean Corpuscular Volume 97.0 fL (81.0-99.0); Nucleated Red Blood Cells % 0 %; Platelet Count 156 10^3/uL (130-400); Red Cell Dist. Width 13.1 % (11.5-14.5)
[2025-04-07 10:56] LABS: Urine Character Clear (Clear)
[2025-04-07 11:02] LABS: ALT (SGPT) 23 U/L (0-35); AST (SGOT) 29 U/L (14-36); Albumin 4.1 g/dl (3.5-5.0); Alkaline Phosphatase 99 U/L (38-126); Blood Urea Nitrogen 13 mg/dl (7-17); Calcium 10.2 mg/dl (8.4-10.2); Carbon Dioxide 26 mmol/L (22-30); Chloride 106 mmol/L (98-107); Estimated Creatinine Clearance 80 ml/min; Glucose 126 mg/dl (70-99); Potassium 3.4 mmol/L (3.5-5.1); Sodium 139 mmol/L (135-145); Total Protein 7.0 g/dl (6.3-8.2); eGFR > 60.00
[2025-04-07 11:16] LABS: Urine Squamous Cell 0-2 /LPF (Few)
[2025-04-07 11:18] LABS: Urine Red Blood Cell 0-2 /HPF (0-2); Urine White Cell 0-2 /HPF (0-5)
[2025-04-07 11:20] VITALS: BP 130/56
--- NOTE | 2025-04-07 12:49 | ED.GENMED ---
History of Present Illness
General
Chief Complaint: Abdominal Pain
Time Seen by Provider: 04/07/25 09:59
History of Present Illness
History of Present Illness:
74-year-old female presents to the emergency department for evaluation of right lower quadrant pain. She was seen in this emergency department 2 months ago for similar complaint at which time she was found to have a very large right ovarian mass.
Due to lack of availability of in-house gynecologic oncology she was sent to [facility]. I do not have immediate access to records however the patient states she was evaluated by [facility] Service Administrator Onc who then deferred to hepatology due to
associated liver mass, she underwent diagnostic laparoscopy with biopsies that confirmed a hepatic carcinoma that was felt to be inoperable. She never was advised to return for follow-up with gynecologic oncology. She has a medical oncology visit
next week but is concerned about the degree of pain limiting her ability to be active.
Past History
Past History
ED Past Medical History: HTN, Hypercholesterolemia and Other (Kidney stones)
ED Past Surgical History: Other ( and colon cancer)
Social History
Tobacco: Non-smoker
Alcohol: Occasional
Drug: None
Personal:
Living: with family
Review of Systems
Review of Systems
Allergies reviewed?: Yes
All Other Systems: ROS reviewed and negative except as documented in HPI and ROS
Phy Exam
Physical Exam
Physical Exam:
GEN: Well appearing, NAD, WDWN
HEENT: Oral mucosa moist, no scleral icterus
Cardiac: Regular rate
Lung: No respiratory distress, no tachypnea
Abdomen: Soft, firm mass in the right lower quadrant, tender to palpation, no rigidity
MSK: No gross deformity or injuries
Skin: Good color, no pallor or jaundice, no rashes
Neuro: AO x3, moves all extremities freely
Psych: Calm, cooperative
Course
Orders/Labs/Results
Orders:
Orders
04/07/25 10:18
CT Abd/Pel (IV only)-DH only Urgent
Comment:
Reason For Exam: abd pain fever
04/07/25 10:32
Complete Blood Count/With Diff Urgent
Comprehensive Metabolic Panel Urgent
Urinalysis Reflex To Culture Urgent
Date Specimen was Collected: 04/07/25
Time Specimen was Collected: 10:25
Urine Microscopic Reflex Cult Urgent
04/07/25 12:59
Morphine Sulfate 4 mg IV NOW STA
Abnormal Lab Results
04/07/25
10:32
MCH 32.9 H pg
(27.0-31.0)
MPV 12.4 H fL
(7.4-10.4)
Absolute Neuts (auto) 8.5 H 10^3/uL
(1.4-6.5)
Absolute Lymphs (auto) 0.7 L 10^3/uL
(1.2-3.4)
Absolute Monos (auto) 1.1 H 10^3/uL
(0.1-0.6)
Neutrophils % 82.1 H %
(42.2-75.2)
Lymphocytes % 6.5 L %
(20.5-51.1)
Monocytes % 10.9 H %
(1.7-9.3)
Potassium 3.4 L mmol/L
(3.5-5.1)
Creatinine 0.5 L mg/dL
(0.6-1.0)
Glucose 126 H mg/dl
(70-99)
Ur Occult Blood Reflex 2+ A
(Negative)
Urine Albumin (Reflex) 2+ A
(Neg - Trace)
04/07/25 10:32
04/07/25 10:32
Vital Signs
Initial and Last Documented VS:
Initial Vital Signs
Temp Pulse Resp BP Pulse Ox
99.7 F 111 16 110/80 96
04/07/25 09:54 04/07/25 09:54 04/07/25 09:54 04/07/25 09:54 04/07/25 09:54
Last Documented Vital Signs
Temp Pulse Resp BP Pulse Ox
99.7 F 120 20 130/56 98
04/07/25 09:54 04/07/25 11:20 04/07/25 11:20 04/07/25 11:20 04/07/25 12:50
MDM/Problems Addressed
MDM/Problems Addressed:
Imaging today shows no evidence for acute pathology. She did have significant progression of the right ovarian mass. Is unclear if this is benign or malignant based on her reported outpatient workup through [facility]. She reported a fever last night
however labs are otherwise unremarkable with no focal source of infection thus this may be a self-limited viral etiology. Although the size of the mass is quite large I do not see any clinical evidence for torsion that would require more urgent
intervention. I communicated her case with gynecologic oncology who will see her in the office for follow-up. She will be prescribed pain medication, no indication for hospitalization at this time
*Pulse Oximetry
SaO2: 98
Oxygen Mode of Delivery: Room air
Patient hypoxic: no
*Critical Care Note
Total Time (30-74mins, 75-104mins- exclusive of procedures): Not Applicable
ED Attending Note
-
Portions of this chart may have been created with voice recognition software.� Occasional wrong word or��sound alike� substitutions may have occurred due to the inherent limitations of voice recognition software.
Discharge Plan
Departure
Patient Disposition: Home (Routine Discharge)
Date of Disposition: 04/07/25
Time of Disposition: 12:49
Patient with high blood pressure during this ER visit?: No
Discharge Problem:
Mass of right ovary
Instructions: Abdominal Pain
Prescriptions:
New
oxycodone 5 mg tablet
5 mg PO Q8H PRN (Reason: Pain) Qty: 20 0RF
No Action
diltiazem HCl 180 MG capsule,extended release 24hr
180 mg PO HS
atorvastatin 20 MG tablet
20 mg PO QPM
therapeutic multivitamin Tablet
1 tab PO DAILY
ibuprofen 400 mg Tablet
400 mg PO Q6HPRN PRN (Reason: mild pain)
nitrofurantoin monohyd/m-cryst [Macrobid] 100 mg Capsule
100 mg PO BID
Rx Instructions:
for 7 days starting 02/03/25
ibandronate 150 mg Tablet
150 mg PO QMONTH
tramadol 25 mg tablet
25 mg PO Q8HPRN PRN (Reason: Pain) Qty: 7 0RF
Referrals:
Andres Llanos, DO [Family Provider, Family Practice]
Faheem Garza MD [Active, PHYS ASSISTANT Oncology] - Call in 1-3 days for appt
Interventions
Interventions:
*Risk Screen - Suicide Last Done: 04/07/25 09:52
*General Assessment Last Done: 04/07/25 09:52
*Neglect/Abuse Screening Last Done: 04/07/25 09:52
*ED- Fall Risk Assessment Last Done: 04/07/25 09:52
*ED COVID-19 Vaccine History Last Done: 04/07/25 09:52
GI-[place] Assessment Last Done: 04/07/25 09:46
Discharge Date and Time
Print Language: MOHAWK
[2025-04-07] MEDS: MORPHINE SULFATE 4 MG IV (13:08)
== END 2025-04-07 13:45 | disposition home or self-care (01) ==
LOC: EMR 09:45
PROVIDERS: Physician Assistant; EMERGENCY PHYSICIAN Emergency Medicine; FAMILY PHYSICIAN Family Medicine
DX: R50.9 Fever, unspecified (principal); R10.31 Right lower quadrant pain; N83.9 Noninflammatory disorder of ovary, fallopian tube and broad ligament, unspecified; C22.9 Malignant neoplasm of liver, not specified as primary or secondary; I10 Essential (primary) hypertension; E78.00 Pure hypercholesterolemia, unspecified; Z87.442 Personal history of urinary calculi; Z88.0 Allergy status to penicillin
CPT/HCPCS: 99284; 96374; 74177; 80053; 81003; 81015; 85025; Q9967

== ENCOUNTER 2025-04-07 22:18 | Inpatient (IN) | payer MEDICARE, BC, SELFPAY ==
[2025-04-07 19:58] VITALS: BP 148/84
[2025-04-07 20:36] VITALS: BMI 24.7
[2025-04-07 20:40] VITALS: BP 144/54
[2025-04-07 21:00] VITALS: BP 135/52
--- NOTE | 2025-04-07 21:36 | ED.GENMED ---
History of Present Illness
General
Chief Complaint: Abdominal Symptoms
Source: patient, records, spouse, previous radiology exam and previous hospital records
Exam Limitations: none
Time Seen by Provider: 04/07/25 20:55
Nursing documentation reviewed up to this point in time: agreed with
History of Present Illness
History of Present Illness:
74-year-old female second visit with abdominal pain in the past 24 hours was in the hospital in January pelvic mass possible liver mass ultimately referred to [facility] saw gynecology oncology who referred her to what sounds like liver
surgery, I did a laparoscopy showed mets from the liver but not the ovary referred to medical oncology who she has not seen yet at [facility] who referred her to local oncology pain is getting worse, particularly in her lower abdomen CAT scan earlier today
Past History
Past History
ED Past Medical History: HTN, Hypercholesterolemia and Other (Kidney stones)
ED Past Surgical History: Other ( and colon cancer, laparoscopy)
Social History
Tobacco: Non-smoker
Alcohol: Occasional
Drug: None
Personal:
Living: with family
Employment: Retired
Review of Systems
Review of Systems
All Other Systems: Not applicable
Constitutional: Reports fatigue; Denies fever
EENT: Reports no symptoms
Respiratory: Reports no symptoms
Cardiac: Reports no symptoms
ABD/GI: Reports abdominal pain and nausea
: Reports no symptoms
Musculoskeletal: Reports no symptoms
Neurological: Reports no symptoms
Endocrine: Reports no symptoms
Phy Exam
Physical Exam
Physical Exam:
Physical Exam
General: no apparent distress, not acutely ill
Neck:
Heart: s1/s2 regular rate and rhythm, no murmur. equal radial pulses.
Lungs: no acute respiratory distress. clear bilaterally
Abdomen: Tender distended right lower Abdo
Neuro: alert and oriented. no focal neurological deficits
Skin: no rash
Psychiatric: well kept. interactive and cooperative
Extremities: no edema.
Course
Orders/Labs/Results
Orders:
Orders
04/07/25 21:34
0.9% Sodium Chloride 1000 ml [Nss] 1,000 ml IV BOLUS
HYDROmorphone [Dilaudid] 1 mg IV NOW STA
Ondansetron Injectable [Zofran] 4 mg IV NOW STA
Vital Signs
Initial and Last Documented VS:
Initial Vital Signs
Temp Pulse Resp BP Pulse Ox
99.4 F 110 20 148/84 96
04/07/25 19:58 04/07/25 19:58 04/07/25 19:58 04/07/25 19:58 04/07/25 19:58
Last Documented Vital Signs
Temp Pulse Resp BP Pulse Ox
99.4 F 89 22 144/54 95
04/07/25 19:58 04/07/25 20:40 04/07/25 20:40 04/07/25 20:40 04/07/25 21:36
MDM/Problems Addressed
Differential Diagnosis Includes:
Abdominal pain primary ovarian primary liver mets carcinomatosis
MDM/Problems Addressed:
Abdominal pain
Chronic conditions affecting care: Previous abdomnial surgery and Cancer
Acute Exacerbation and/or Progression of Chronic Illness: Previous abdomnial surgery and Cancer
*Radiology
Radiology exam reviewed: radiology read reviewed
*Pulse Oximetry
SaO2: 95
Oxygen Mode of Delivery: Room air
Patient hypoxic: no
*Critical Care Note
Total Time (30-74mins, 75-104mins- exclusive of procedures): Not Applicable
Data Reviewed
Review of Other/Old Records Reveals: Labs, Radiology Studies, Progress Notes and Discharge Summary
Source: patient, records, spouse and previous radiology exam
Update Note
Update Note:
Update patient second ER visit, with pain worsening ovarian mass objectively on CT today prior MR noted, sent a text to gynecology oncology hospitalist and gynecology I believe it would be prudent to admit her to the hospital for analgesia, and to
get a treatment plan discussed with spouse and patient
ED Attending Note
-
Portions of this chart may have been created with voice recognition software.� Occasional wrong word or��sound alike� substitutions may have occurred due to the inherent limitations of voice recognition software.
Discharge Plan
Departure
Patient Disposition: Admit
Date of Disposition: 04/07/25
Time of Disposition: 21:40
Admit to: Med/Surg
Presentation/result/management discussed w/ accepting MD/DO: Hospitalist
Patient with high blood pressure during this ER visit?: Yes
Condition: Fair
Discharge Problem:
Abdominal pain
Prescriptions:
No Action
diltiazem HCl 180 MG capsule,extended release 24hr
180 mg PO HS
atorvastatin 20 MG tablet
20 mg PO QPM
therapeutic multivitamin Tablet
1 tab PO DAILY
ibuprofen 400 mg Tablet
400 mg PO Q6HPRN PRN (Reason: mild pain)
nitrofurantoin monohyd/m-cryst [Macrobid] 100 mg Capsule
100 mg PO BID
Rx Instructions:
for 7 days starting 02/03/25
ibandronate 150 mg Tablet
150 mg PO QMONTH
tramadol 25 mg tablet
25 mg PO Q8HPRN PRN (Reason: Pain) Qty: 7 0RF
oxycodone 5 mg tablet
5 mg PO Q8H PRN (Reason: Pain) Qty: 20 0RF
Referrals:
Andres Llanos DO [Family Provider, Family Practice]
Interventions
Interventions:
*Risk Screen - Suicide Last Done: 04/07/25 19:58
*General Assessment Last Done: 04/07/25 19:58
*Neglect/Abuse Screening Last Done: 04/07/25 19:58
*ED- Fall Risk Assessment Last Done: 04/07/25 20:36
*ED COVID-19 Vaccine History Last Done: 04/07/25 20:36
YI-Fvialh-Fpzdbjwnif Assessment Last Done: 04/07/25 20:41
Discharge Date and Time
Print Language: FINNISH
[2025-04-07 22:00] VITALS: BP 133/52
[2025-04-07] MEDS: DILAUDID 1 MG IV (22:01)
[2025-04-07] MEDS: ZOFRAN 4 MG IV (22:01)
[2025-04-07] MEDS: NSS 1000 IV (22:02)
--- NOTE | 2025-04-07 22:12 | HPS.HSE ---
Family Physician
-
Family Physician: Andres Llanos
Chief Complaint
-
N/V
History of Present Illness
Patient is a 74y F with PMH significant for colon cancer s/p resection and recent ovarian mass lesion who presents to ED complaining of nausea / vomiting. Patient was seen in the ED earlier today for RLQ abdominal pain. She was treated with IV
morphine with improvement in her pain. Unfortunately, after return home patient developed N/V and was unable to tolerate any PO intake. She had multiple episodes of N/V and returned to the ED for further evaluation.
Patient initially developed RLQ abdominal pain in January. She was seen here on 02/09 and admitted for further evaluation. She was transferred to [place] for further work-up at that time.
Patient states that she underwent exploratory laparoscopy at [place]. Biopsies at that time (reportedly of omental / peritoneal implants) were positive for hepatic source. Primary L hepatic / biliary lesions was reportedly not amenable to access /
biopsy at that time. No significant resection / reduction was performed. Patient was referred to [facility] for further evaluation and has yet to begin any chemotherapy, etc at this time.
In the interim, patient has had increase in RLQ abdominal pain. No significant back pain. No difficulty with bowel movements or urination.
Medical History
Past Medical History
Past Medical History: Reports Other
Additional Past Medical History:
Colon Cancer s/p Resection
Osteoporosis
Hypertension
Skin Cancer
Past Surgical History: Reports Other
Additional Past Surgical History:
Hemicolectomy
x 2
Ex Lap (January 2025)
Social History
Tobacco: Non-smoker
Alcohol: Occasional
Drug: None
Family History
Family History: Not pertinent
Allergies / Home Medications
Allergies reflects when Allergies were last updated in [facility].
Home Medications with original date entered in [facility]
Allergy/Medication List:
Allergies
Allergy/AdvReac Type Severity Reaction Status Date / Time
Penicillins Allergy Unknown Verified 04/07/25 09:55
Home Medications
diltiazem HCl 180 mg capsule,extended release 24 hr 180 mg PO HS Blood pressure 01/25/22
ibandronate 150 mg tablet 150 mg PO QMONTH 02/09/25
Review of Systems
-
History Source: Patient
A 12 point ROS was completed and negative except as noted: Yes
Constitutional: Reports Fatigue; Denies Fever or Chills
Respiratory: Denies Cough or Trouble Breathing
Cardiac: Denies Chest Pain or Palpitations
Abdomen/GI: Reports Abdominal Pain, Nausea and Vomiting; Denies Diarrhea, Constipated, Bloody Stools, Black Stools or Anorexia
: Denies Dysuria, Frequency or Flank Pain
Musculoskeletal: Denies Joint Pain or Edema
Neurological: Denies Dizzy or Headache
Psych: Denies Depression or Anxiety
Physical Exam
Vital Signs
Vital Signs
Temp Pulse Resp BP Pulse Ox
98.4 F 89 22 144/54 95
04/07/25 22:08 04/07/25 20:40 04/07/25 20:40 04/07/25 20:40 04/07/25 21:36
Physical Exam
General: Other (74y F in no acute distress.)
HEENT: Moist mucous membranes and PERRLA
Respiratory: Clear; No Wheezes, Rales or Rhonchi
Cardiac: S1/S2 and Irregular Rhythm; No Murmur
GI: Other (Palpable fullness / firmness R lower abdomen with associated tenderness. Normal bowel sounds.)
Musculoskeletal: No Clubbing, No Cyanosis and No Edema
Neuro: AO x 3
Impression/Plan
-
A/P: Patient is a 74y F with PMH significant for colon cancer, R adnexal cystic lesion and recent diagnosis of hepatic or biliary carcinoma who presents to ED complaining of N/V after narcotic medication earlier today.
Abdominal Pain
Right Ovarian Cystic Lesion
N/V - Med Induced
- Admit for further evaluation and treatment.
- Significant increase in size of R adnexal cystic lesion from January scans (16 to 20 cm in diameter).
- ? etiology as recent biopsies / tumor markers / other imaging findings seem more consistent with hepatic (or more likely biliary) malignancy.
- In any event, the cystic lesion appears to be the source of the majority of her symptoms / discomfort.
- Pain control, supportive care, antiemetics if needed, etc.
- [facility]ENE[facility] CLIPPER-Onc evaluation for additional recommendations.
Hepatic / Biliary Carcinoma
- Ex Lap in January at [facility] reportedly showed hepatic carcinoma.
- CA 19-9 markedly elevated here (3024) and MRI / hepatic duct appearance would suggest hepatic or biliary primary.
- Other tumor markers were unremarkable (CA 125, CEA, AFP).
- Radiographic and intraoperative evidence of peritoneal carcinomatosis, i.e. inoperable malignancy.
- Med Onc evaluation for further recommendations / treatment plan.
Benign Hypertension
- Stable. Continue diltiazem with holding parameters.
History of Colon Cancer
- Remote history s/p hemicolectomy. No adjuvant chemo, XRT, etc.
DVT Prophylaxis: SCDs
Code Status: Full
[2025-04-07 23:00] VITALS: BP 112/75
[2025-04-07] MEDS: CARDIZEM CD 180 MG PO (23:32)
[2025-04-07] MEDS: LR 1000 IV (23:33)
[2025-04-07 23:43] VITALS: BMI 23.7
[2025-04-07 23:44] VITALS: BP 143/75
[2025-04-08 03:33] VITALS: BP 116/59
[2025-04-08 06:00] VITALS: BMI 23.7
--- NOTE | 2025-04-08 06:17 | W.CON.GYNONC ---
Consultation
-
Date/Time Consultation Requested: 04/07/2025
Requesting Provider: Erick Guerrero
Performing Provider: Faheem Garza
Chief Complaint
-
abdominal pain
History of Present Illness
74-year-old white female presents to the emergency department for evaluation of right lower quadrant pain on 04/07. She was seen in this emergency department in early January 2025 for similar complaint at which time she was found to have a very
large right ovarian mass. she was sent to [facility] for evaluation where she was seen by surgical oncology (Harjinder Hopkins) , b2b sales executive oncology (Roberth Stoddard) and medical oncology (Danyell Li)
All physicians involved suspected primary GI malignancy and hence she she underwent diagnostic laparoscopy by Dr Hopkins 03/16/2025 and carcinomatosisy was done. 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 Surgery was not advised and she was to follow up with medical oncology.
Medical History
Past Medical History
Additional Past Medical History:
Skin Cancer (SCCA left cheek) 2019
Hyperplastic polyp colon
Past Surgical History:
Hemicolectomy
x 2
Diagnostic laparoscopy January 2025)
Mohs surgery
Family History
Family History: Other (Mother Heart disease, maternal GF pancreatic ca)
Allergies
Allergies reflect when allergies were last updated in [facility].
Penicillins Allergy (Verified 04/07/25 09:55)
Unknown
Physical Exam
Vital Signs / I&O
Vitals
Temp Pulse Resp BP Pulse Ox
98.9 F 88 18 116/59 100
04/08/25 03:33 04/08/25 03:33 04/08/25 03:33 04/08/25 03:33 04/08/25 03:33
I&O
04/05/25 04/06/25 04/07/25 04/08/25
06:59 06:59 06:59 06:59
Intake Total 120 / 120
Balance 120 / 120
Results
-
[facility]
[address] [place] [address]
[phone]
Patient Name: VIGNESH SUTHERLAND
: 1950
Unit Number: [id number]
Age/Sex: 74/F
Patient
Location: [address] [place] [address]
Order Provider: Krista Bishop MD
Exam Service Date: 02/10/25

Magnetic Resonance Imaging Rpt
SignedOrder #:[id number]
Exams: MR Abdomen W/o & W Contrast; MR Pelvis W/o & With Contrast
PROCEDURE: MR Abdomen W/o and W Contrast. MR Pelvis W/o and W Contrast.
CLINICAL INDICATION: Adnexal mass. Bile duct dilatation.
TECHNIQUE: MRI examinations of the abdomen and the pelvis were performed with and without intravenous contrast on a 3 Ivory magnet. Imaging was performed before and after the intravenous administration of 14 mL Clariscan gadolinium contrast material
COMPARISON: CT abdomen/pelvis 02/09/2025. Pelvic ultrasound 02/09/2025.
FINDINGS:
MRI ABDOMEN:
The lung bases are clear.
Atrophy of the left hepatic lobe and severe left hepatic lobe intrahepatic ductal dilatation. Normal appearance of the right hepatic lobe. Ill-defined small region of hypoenhancement relative to normal liver parenchyma in the central left hepatic
lobe proximal to the region of biliary ductal dilatation measuring 1.8 x 1.6 cm (series 1601, image 568). Mild restricted diffusion also identified at this location. There is relative hyperenhancement of the parenchyma in the left hepatic lobe
compared to the right.
Trace abdominal ascites.
The gallbladder is within normal limits. No extrahepatic bile duct dilatation. No filling defect to suggest choledocholithiasis. The main pancreatic duct is nondilated. The pancreas, spleen, and bilateral adrenal glands are unremarkable. Right upper
pole renal cyst measuring 3.2 cm. Small left renal cysts. No hydronephrosis.
The abdominal aorta is normal in caliber.
No abdominal or retroperitoneal lymphadenopathy.
MRI PELVIS:
Large cystic mass with multiple internal septations in the pelvis and right lower quadrant of the abdomen measuring 13.4 x 12.3 x 12.8 cm. Postcontrast sequences show the internal septations are thin and enhancing. No solid nodular postcontrast
enhancement. Right ovarian origin is suspected.
Mild pelvic ascites.
The uterus is unremarkable. The left ovary is atrophic. Mass effect on the superior aspect of the urinary bladder from the cystic mass.
Chronic degenerative changes of the spine.
IMPRESSION:
Atrophy and severe intrahepatic ductal dilatation of the left hepatic lobe. 1.8 x 1.6 cm ill-defined region of hypoenhancement and mild restricted diffusion in the central left hepatic lobe proximal to the region of biliary ductal dilatation,
suspicious for an obstructing mass. Cholangiocarcinoma would be the primary consideration given the degree of ductal dilatation. Soft tissue sampling is recommended for more definitive characterization.
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 Thin enhancing internal septations, but no solid nodular postcontrast enhancement, which would favor a cystadenoma rather than a cystadenocarcinoma. However, surgical
consultation is still recommended.
Electronically signed by Kelly Hamlin, 02/10/2025 10:09 AM
[facility]
[address] [facility] [place] [address]
[phone]
Patient Name: VIGNESH SUTHERLAND
: 1950
Unit Number: [id number]
Age/Sex: 74/F
Patient
Location: EMR
Order Provider: Jose Julian PA-C
Exam Service Date: 04/07/25

Diagnostic Imaging Report
SignedOrder #:[id number]
Exams: CT Abd/Pel (IV only)-DH only
EXAMINATION: CT of the abdomen and pelvis with intravenous contrast.
INDICATION: Abdominal pain. Fever.
TECHNIQUE: Contiguous helical acquisition from the bases of the lungs through the pubic symphysis following the intravenous administration of 80 ml of Omnipaque. Automated dose reduction technique was utilized. Axial reconstructions and sagittal and
coronal reformats provided. No enteric contrast. Delayed phase images were obtained.
COMPARISON: 02/09/2025.
FINDINGS:
Lung Bases: Subsegmental atelectasis/scarring. Otherwise clear.
Abdomen and pelvis: As seen previously, there is marked dilation of the biliary ducts in the left lobe of the liver. There are atrophic changes of the left lobe of the liver. There is no well-defined left lobe hepatic mass, however there is an area
of relatively decreased attenuation along the central aspect (image #21 series 201). Biliary malignancy cannot be excluded. Right lobe of liver is unremarkable. Gallbladder is unremarkable. The spleen is unremarkable. Pancreas is unremarkable. The
adrenal glands are unremarkable. Left kidney shows a 7 mm parapelvic calculus. No hydronephrosis. Left kidney shows 3 subcentimeter low-attenuation foci, too small to characterize but most likely cysts. The right kidney shows upper pole benign
simple cyst measuring 3.1 cm in diameter. On the delayed images, there is mild prominence of the right renal collecting system as compared with the left which is likely related to mass effect against the right ureter by the pelvic mass. On the early
phase images, there is no abeba right-sided hydronephrosis.
There is very large complex cystic pelvic masses seen previously. This now measures up to 20.5 cm in diameter, significantly larger. There is mass effect against adjacent structures. There are multiple small foci of abnormal soft tissue attenuation
along the omentum compatible with peritoneal carcinomatosis. These are all small in size. There is new abnormal soft tissue attenuation along the left anterior abdominal wall which could be related to an interval procedure, exact etiology
indeterminate. There is no bowel obstruction. Patient is post right hemicolectomy with ileocolic anastomosis as seen previously. No abnormal focal inflammatory reaction of the bowel identified. No free air or free fluid within the abdomen. There is
no retroperitoneal lymphadenopathy. There is no aneurysmal dilation of the aorta.
Mass lesion in the pelvis most likely arises from the right adnexa, not definitive. There is mass effect against the uterus. There is a separate 5.3 cm cystic lesion along the left adnexa which is new as compared with the previous examination.
Urinary bladder is decompressed, otherwise unremarkable. The rectum is within normal limits. There is trace free fluid within the pelvis.
Bone: Degenerative changes. No abnormal focal osseous lesions.
IMPRESSION:
1. Marked intrahepatic biliary dilation in the left lobe of the liver as seen previously. As above, no associated well-defined mass, however there is an area of left lobe relatively decreased attenuation which could represent malignancy. Atrophic
change of the left lobe of the liver as seen previously.
2. Interval significant increase in size of predominantly cystic pelvic mass as above, highly suspicious for ovarian malignancy. There are innumerable very small low-attenuation nodules throughout the omentum consistent with peritoneal
carcinomatosis.
3. New approximately 5.3 cm ovoid cystic lesion along the left adnexa, possibly metastasis.
4. Mass effect against the right ureter with associated mild prominence of the right renal collecting system as compared with the left, no abeba hydronephrosis.
5. Nonobstructive left nephrolithiasis.
Electronically signed by Erik Larry DO, 04/07/2025 12:21 PM
[employer] Dose Report: Up-to-date CT equipment and radiation dose reduction techniques were employed. CTDIvol: 8.1 mGy. DLP: 927 mGy-cm.
Dictated By: Erik Larry DO.
Dictated Date & Time: 04/07/25 1205
Impression / Plan
-
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 Resection of pelvic mass may be complicated due to carcinomatosis and may also delay onset of chemo for primary upper GI malignancy.
It does not make sense to do surgery at this time to remove this and the priority is to start systemic chemo for her primary malignancy.
after primary tumor is treated for 3-4 months we can re evaluate to see if mass can be resected for palliative purposes only.
if the mass is causing symptoms, we could consider IR to drain the mass percutaneously for symptom relief.
I will await medical oncology evaluation and discuss later today.
Faheem Garza
[employer] Editor Oncology
[phone]
[2025-04-08 08:00] VITALS: BP 99/69
[2025-04-08 08:07] LABS: Hematocrit 36.4 % (37.0-47.0); Hemoglobin 12.3 g/dL (12.0-16.0); Mean Corp Hgb Conc. 33.8 g/dL (33.0-37.0); Mean Corpuscular Volume 97.3 fL (81.0-99.0); Platelet Count 133 10^3/uL (130-400); Red Cell Dist. Width 12.8 % (11.5-14.5)
[2025-04-08 08:38] LABS: ALT (SGPT) 20 U/L (0-35); AST (SGOT) 24 U/L (14-36); Albumin 3.2 g/dl (3.5-5.0); Alkaline Phosphatase 95 U/L (38-126); Blood Urea Nitrogen 13 mg/dl (7-17); Calcium 9.1 mg/dl (8.4-10.2); Carbon Dioxide 26 mmol/L (22-30); Chloride 106 mmol/L (98-107); Estimated Creatinine Clearance 80 ml/min; Glucose 110 mg/dl (70-99); Potassium 4.0 mmol/L (3.5-5.1); Sodium 135 mmol/L (135-145); Total Protein 5.7 g/dl (6.3-8.2); eGFR > 60.00
--- NOTE | 2025-04-08 10:13 | CON.ONC ---
Documented by User: Daysi Mccormack MD, Resident 04/08/25 15:33
Consultation
-
Date Consultation Requested: 04/07/25
Date Consultation Performed: 04/08/25
Requesting Provider: Erick Guerrero MD
Performing Provider: Dr. Harsh Olea
Reason for Consultation: Hepatic Cancer / Ovarian Mass
Impression
Impression
Right lower quadrant pain
Nausea and vomiting
Pelvic cystic mass
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
HTN
Plan
Plan
- Nausea control
- Pain control
- Not a surgical candidate and will likely need to start systemic chemo for primary malignancy
- IR consult to drain large pelvic cyst on Friday for pain control. Discussed and also okay with Dr. Garza.
- Will require follow-up in outpatient setting to start chemotherapy
Patient History
History of Present Illness
74-year-old female with past medical history of primary adenocarcinoma of hepatobiliary origin, colon cancer s/p resection, osteoporosis, hypertension, skin cancer presented to the hospital with uncontrollable nausea and vomiting. She was seen in
the ED earlier in the day for right lower quadrant pain and was provided morphine. She felt better and was subsequently discharged, however in the evening after the morphine she started to have uncontrollable nausea and vomiting, unable to tolerate
p.o., and came back to the hospital for further evaluation.
Of note, she was seen earlier at [place] emergency department in January 2025 for similar issues. She was found to have a very large right ovarian mass and was subsequently sent to [facility] for evaluation as her gynecologic oncologist was not available
at the time. She was seen by surgical oncology, gynecologic oncology and medical oncology. All physicians involved suspected a primary GI malignancy. She underwent a diagnostic laparoscopy by Dr. Hopkins on 03/16/2025 and carcinomatosis was done and
omental biopsy. 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 She was advised to start chemotherapy as surgery was not appropriate at the time.
In the ED, blood pressure was 144/54, pulse 89, respiratory rate 22, afebrile satting well on room air. WBC from earlier that day was 10.3, hemoglobin 14.1, potassium 3.4, creatinine 0.5. Prior CA 19�9 on 02/10/2025 was 3024. Tumor marker AFP,
carcinoembryonic antigen and CA125 were unremarkable. Abdomen pelvic CT was done which revealed a large complex cystic pelvic mass with increase in size from 16 to 20.5 cm in diameter there is also a newly approximated 5.3 ovoid cystic lesion along
the left adnexa possibly metastatic. There is also an area of the left lobe of the liver relatively decreased attenuation which could represent malignancy. She was started on fluids, antinausea medication and was admitted for further evaluation.
Hematology oncology and gynecologic oncology were consulted for evaluation of masses.
Past-Medical/Surgical History
Past medical history: Colon cancer status post resection, osteoporosis, hypertension, skin cancer
Past surgical history: Hemicolectomy, x 2, exploratory laparoscopy January 2025
Patient Medication
�Medication �Instructions �Recorded �Confirmed �Last Taken �Type
diltiazem HCl 180 mg 180 mg PO HS Blood pressure 01/25/22 04/07/25 02/08/25 History
capsule,extended release 24 hr
ibandronate 150 mg tablet 150 mg PO QMONTH Osteoporosis, 02/09/25 04/07/25 Unknown History
postmenopau
Active Medications
Generic Name Dose Route Start Last Admin
Trade Name Freq PRN Reason Stop Dose Admin
Acetaminophen 650 mg 04/07/25 23:15
Acetaminophen 325 Mg Tablet PO 05/05/25 23:14
Q4HPRN PRN
Mild Pain / Temp > 101
Diltiazem HCl 180 mg 04/07/25 23:15 04/07/25 23:32
Diltiazem 180 Mg Extended Release (24 H) Capsule PO 05/05/25 23:14 180 mg
HS SILVERIO Administration
Hydromorphone HCl 0.5 mg 04/07/25 23:15
Hydromorphone 0.5 Mg/0.5 Ml Syringe IV 04/21/25 23:14
Q4HPRN PRN
Severe Pain
Lactated Ringer's 1,000 mls @ 80 mls/hr 04/07/25 23:15 04/07/25 23:33
Lr IV 1,000 mls
.[id number] SILVERIO Administration
Ondansetron HCl 4 mg 04/07/25 23:15
Ondansetron 4 Mg/2 Ml Vial IV 05/05/25 23:14
Q6HPRN PRN
nausea and vomiting
Polyethylene Glycol 17 grams 04/07/25 23:15
Polyethylene Glycol Powder 17 Grams Packet PO 05/05/25 23:14
DAILY PRN
Constipation
Sodium Chloride 0 flush 04/07/25 23:00
Sodium Chloride 0.9% (Flush) Syringe IV 05/05/25 22:59
PER PROTOCOL SILVERIO
Review of Systems
-
History Source: Patient
Respiratory: Reports No Symptoms
Cardiac: Reports No Symptoms
GI: Reports Abdominal Pain and Nausea
: Reports No Symptoms
Neuro: Reports No Symptoms
Physical Exam
-
General: No Apparent Distress and Comfortable
Cardiology: Normal Sinus Rhythm, S1 and S2
Pulmonary: Clear
GI: Soft, Normal Bowel Sounds and Other (Right lower quadrant pain)
Musculoskeletal: No Cyanosis and No Edema
Skin: Warm and Dry
Psych: Calm
Labs
Lab Results
WBC 11.4 10^3/uL (4.8-10.8) H 04/08/25 07:40
RBC 3.74 10^6/uL (4.20-5.40) L 04/08/25 07:40
Hgb 12.3 g/dL (12.0-16.0) 04/08/25 07:40
Hct 36.4 % (37.0-47.0) L 04/08/25 07:40
MCV 97.3 fL (81.0-99.0) 04/08/25 07:40
MCH 32.9 pg (27.0-31.0) H 04/08/25 07:40
MCHC 33.8 g/dL (33.0-37.0) 04/08/25 07:40
RDW 12.8 % (11.5-14.5) 04/08/25 07:40
Plt Count 133 10^3/uL (130-400) 04/08/25 07:40
MPV 13.0 fL (7.4-10.4) H 04/08/25 07:40
Creatinine 0.5 mg/dL (0.6-1.0) L 04/08/25 07:40
Vital Signs
Vital Signs
Temp Pulse Resp BP Pulse Ox
99.4 F 99 16 99/69 92
04/08/25 08:00 04/08/25 08:00 04/08/25 08:00 04/08/25 08:00 04/08/25 08:00

Documented by User: Harsh Olea MD 04/08/25 17:09
Plan
Plan
- Nausea control
- Pain control
- Not a surgical candidate and will likely need to start systemic chemo for primary malignancy
- IR consult to drain large pelvic cyst on Friday for pain control. Discussed and also okay with Dr. Garza.
- Will require follow-up in outpatient setting to start chemotherapy
04/08: Difficult case. At the [facility], aggressive debulking surgery was not felt to be warranted, given the likelihood that this was a cancer originating in the upper GI tract. However, since then, the very large cystic ovarian
mass has grown substantially, and there is a new cystic pelvic mass present as well. I discussed the case with Dr. Art. Debulking surgery for palliative measures in the pelvis may or may not be feasible. Chemotherapy for biliary malignancy
may or may not be of benefit here as well. We have agreed that an attempt at percutaneous drainage of the large cystic structure would make sense, just from a palliative point of view. I have asked interventional radiology to look into this.
[2025-04-08 11:44] VITALS: BP 114/71
--- NOTE | 2025-04-08 12:42 | W.PN.HOSP.TC ---
Today's Communication/Plan
-
pain control
appreciate consultants
Assessment / Plan
Assessment / Plan
A/P: Patient is a 74y woman with PMH significant for colon cancer, R adnexal cystic lesion and recent diagnosis of hepatic or biliary carcinoma who presents to ED complaining of N/V after narcotic medication earlier that day, given in prior ER
visit for pain.
Abdominal Pain
Right Ovarian Cystic Lesion
Hepatic / Biliary Carcinoma
- Ex Lap in January at [facility] showed hepatic carcinoma.
- CA 19-9 markedly elevated here (3024) and MRI / hepatic duct appearance would suggest hepatic or biliary primary.
- Other tumor markers were unremarkable (CA 125, CEA, AFP).
- Radiographic and intraoperative evidence of peritoneal carcinomatosis, i.e. inoperable malignancy.
- Significant increase in size of R adnexal cystic lesion from January scans (16 to 20 cm in diameter).
- appreciate [facility] Feeder-Onc eval, per Dr. 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 Garza, priority to start chemo prior to surgery, can reevaluate after 3-4 months
- follow up further Oncology eval
Pain control
-patient comfortable this morning, we discussed trial of oral oxycodone if she has severe pain
Benign Hypertension
- Stable. Continue diltiazem with holding parameters.
History of Colon Cancer
- Remote history s/p hemicolectomy. No adjuvant chemo, XRT, etc.
DVT Prophylaxis: lovenox subQ
Code Status: Full
Anticipated Discharge: 24 - 48 hours
Subjective/Interval History
-
Date of Service: April 08, 2025
Objective Data
-
Labs:
Laboratory Results
04/08/25
07:40
WBC 11.4 H
Hgb 12.3
Hct 36.4 L
Plt Count 133
Sodium 135
Potassium 4.0
Chloride 106
Carbon Dioxide 26
BUN 13
Creatinine 0.5 L
Glucose 110 H
Calcium 9.1
Total Bilirubin 0.7
AST 24
ALT 20
Alkaline Phosphatase 95
Vital Signs:
Vital Signs
Temp Pulse Resp BP Pulse Ox
99.3 F 95 18 114/71 94
04/08/25 11:44 04/08/25 11:44 04/08/25 11:44 04/08/25 11:44 04/08/25 11:44
I&O
04/07/25 04/08/25 04/09/25
06:59 06:59 06:59
Intake Total 120 / 120
Balance 120 / 120
--- NOTE | 2025-04-08 15:27 | CM ---
Patient seen bedside w/ spouse. Initial assessment completed. Patient is a 74y F with PMH significant for colon cancer s/p resection and recent ovarian mass lesion who presents to ED complaining of nausea / vomiting. On room air.
Patient resides w/ spouse in a 2ST[facility], 2 steps to enter from the outside. Independent w/ ambulation and ADLs, no DME reported. No SNF/HC hx reported.
Address, point of contact and insurance verified
PCP: Andres Llanos
Pharmacy: [facility]
Plan: Home, no needs anticipated
[2025-04-08 16:00] VITALS: BP 130/66
[2025-04-08] MEDS: TYLENOL 650 MG PO (16:36)
[2025-04-08 19:36] VITALS: BP 125/71
[2025-04-08] MEDS: CARDIZEM CD 180 MG PO (22:11)
[2025-04-08 23:04] VITALS: BP 142/78
[2025-04-09 03:35] VITALS: BP 119/76
[2025-04-09 06:00] VITALS: BMI 23.9
[2025-04-09 07:00] VITALS: BP 143/63
[2025-04-09 09:09] LABS: Hematocrit 37.8 % (37.0-47.0); Hemoglobin 13.0 g/dL (12.0-16.0); Mean Corp Hgb Conc. 34.4 g/dL (33.0-37.0); Mean Corpuscular Volume 95.5 fL (81.0-99.0); Platelet Count 161 10^3/uL (130-400); Red Cell Dist. Width 12.5 % (11.5-14.5)
[2025-04-09 09:24] LABS: Blood Urea Nitrogen 14 mg/dl (7-17); Calcium 9.6 mg/dl (8.4-10.2); Carbon Dioxide 26 mmol/L (22-30); Chloride 104 mmol/L (98-107); Estimated Creatinine Clearance 80 ml/min; Glucose 112 mg/dl (70-99); Potassium 3.6 mmol/L (3.5-5.1); Sodium 136 mmol/L (135-145); eGFR > 60.00
--- NOTE | 2025-04-09 10:24 | W.PN.HOSP.TC ---
Today's Communication/Plan
-
Ok for discharge today with follow up wtih IR on Friday for outpatient procedure of percutaneous drainage of ovarian cyst
Assessment / Plan
Assessment / Plan
A/P: Patient is a 74y woman with PMH significant for colon cancer, R adnexal cystic lesion and recent diagnosis of hepatic or biliary carcinoma who presents to ED complaining of N/V after narcotic medication earlier that day, given in prior ER
visit for pain.
Abdominal Pain
Right Ovarian Cystic Lesion
Hepatic / Biliary Carcinoma
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
- Radiographic and intraoperative evidence of peritoneal carcinomatosis
- Significant increase in size of R adnexal cystic lesion from January scans (16 to 20 cm in diameter).
- per Dr. 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
- appreciate Account Assistant-Onc and Oncology Eval
- IR consulted for percutaneous drainage - this can be done as outpatient. I will discharge patient today
Pain control
-patient comfortable this morning, we discussed trial of oral oxycodone if she has severe pain
Benign Hypertension
- Stable. Continue diltiazem with holding parameters.
History of Colon Cancer
- Remote history s/p hemicolectomy. No adjuvant chemo, XRT, etc.
DVT Prophylaxis: lovenox subQ
Code Status: Full
Anticipated Discharge: Today
Subjective/Interval History
-
Date of Service: April 09, 2025
overall doing okay
hasn't required oxycodone
asking if she can go home then come back for procedure
Objective Data
-
Labs:
Laboratory Results
04/09/25
08:26
WBC 12.4 H
Hgb 13.0
Hct 37.8
Plt Count 161 D
Sodium 136
Potassium 3.6
Chloride 104
Carbon Dioxide 26
BUN 14
Creatinine 0.5 L
Glucose 112 H
Calcium 9.6
Vital Signs:
Vital Signs
Temp Pulse Resp BP Pulse Ox
99.4 F 94 16 143/63 92
04/09/25 07:00 04/09/25 07:00 04/09/25 07:00 04/09/25 07:00 04/09/25 07:00
I&O
04/08/25 04/09/25 04/10/25
06:59 06:59 06:59
Intake Total 120 / 120 240 / 240
Balance 120 / 120 240 / 240
Review of Systems
-
History Source: Patient
All other systems: Reviewed and negative
Physical Exam
-
General: No Apparent Distress
HEENT: Normocephalic
Respiratory: Clear to Auscultation; Negative Wheezes
GI: Soft, Nontender and Nondistended
Musculoskeletal: No Edema
Neuro: Awake, Alert, Oriented and AO x 3
Psych: Calm
Data Reviewed
-
Diagnostic Radiology: Report Reviewed by me
Labs: Labs Reviewed by me
--- NOTE | 2025-04-09 10:34 | W.DS.TRANS ---
DC Summary - Incident Response Engineer
-
Discharge Instructions:
Discharge Diagnosis/Procedures metastatic adenocarcinoma with large ovarian
mass
Diet Regular
Activity As tolerated
Driving Restrictions As prior to admission
Bathing Restrictions None
Instructions:
Stand-Alone Forms:
Changes to Home Medications: No
Discharge Medications:
DC Medications w/original date entered in [employer]
diltiazem HCl 180 mg capsule,extended release 24 hr 180 mg PO HS Blood pressure 01/25/22
ibandronate 150 mg tablet 150 mg PO QMONTH Osteoporosis, postmenopau 02/09/25
Home Medication Changes
Pending Results: No
[2025-04-09 11:00] VITALS: BP 143/83
--- NOTE | 2025-04-09 12:26 | W.DCSUMMARY ---
Discharge Summary
Discharge Data
Date of Admission: 04/07/25
Date of Discharge: 04/09/25
-
Pending Results: No
Hospital Course
Discharging Physician : Dr. Nimisha Farah
Disposition : Home
Primary care physician : Dr. Andres Llanos
Principal Discharge diagnosis : Metastatic Adenocarcinoma of hepatobiliary origin, ovarian cyst
Hospital Course :
Ms. Mel Plaza is a 74 yo woman with history significant for colon cancer status post resection, recent diagnosis of hepatic biliary adenocarcinoma metastatic with large right ovarian mass though to be metastasis from known malignancy presented to
the ER morning of 04/07 for significant RLQ pain s/p morphine represents later that day complaining of nausea and vomiting.
Triage vitals stable. Labs with mild leukocytosis. CT from earlier that day showed intrahepatic biliary dilation as seen prior; interval significant increase in size of cystic pelvic mass with evidence of peritoneal carcinomatosis. She was
admitted to medicine with [facility]/Onc and Oncology consulting on further management.
Per discussion with specialists, IR consulted for percutaneous drainage of mass to help relieve discomfort. Patient is then set to schedule chemotherapy for treatment of malignancy.
Discussed with Dr. Larry, this procedure can be done as outpatient on Friday. Patient will be called Friday morning for timing, she is told she does not need to be NPO.
Patient did not have significant pain while in the hospital. She has a script of Percocet sent from ER and is told to only take it with food.
Time spent on discharge was 32 minutes.
Important imaging findings :
CT A/P 04/07/25
IMPRESSION:
1. Marked intrahepatic biliary dilation in the left lobe of the liver as seen previously. As above, no associated well-defined mass, however there is an area of left lobe relatively decreased attenuation which could represent malignancy. Atrophic
change of the left lobe of the liver as seen previously.
2. Interval significant increase in size of predominantly cystic pelvic mass as above, highly suspicious for ovarian malignancy. There are innumerable very small low-attenuation nodules throughout the omentum consistent with peritoneal
carcinomatosis.
3. New approximately 5.3 cm ovoid cystic lesion along the left adnexa, possibly metastasis.
4. Mass effect against the right ureter with associated mild prominence of the right renal collecting system as compared with the left, no abeba hydronephrosis.
5. Nonobstructive left nephrolithiasis.
Procedure findings :
Discharge Plan
-
Patient Disposition: Home (Routine Discharge)
Discharge Diagnosis/Procedures: metastatic adenocarcinoma with large ovarian mass
Diet: Regular
Activity: As tolerated
Driving Restrictions: As prior to admission
Bathing Restrictions: None
Referrals:
Radha Pereira MD [Active, Oncology]
Andres Llanos DO [Family Provider, [facility]] - in less than 1 week
Erik Larry DO [Active, Radiology] - 04/11/25
Referral Note: You should receive a phone call on Friday to let you know time of procedure. You can also call in the morning.
Additional Discharge Medication Instructions: Ok to eat breakfast Friday morning
You can take previously prescribed Percocet as needed for pain. Take with food to help prevent nausea.
Prescriptions:
Continued
diltiazem HCl 180 MG capsule,extended release 24hr
180 mg PO HS
ibandronate 150 mg Tablet
150 mg PO QMONTH
Discharge Orders:
Discharge Patient (As Directed); Ordered 04/09/25
Ordered By: Nimisha Farah
Discharge Date and Time
Discharge Date/Time: 04/09/25 12:23
Print Language: VIETNAMESE
--- NOTE | 2025-04-09 13:36 | W.PN.ONC ---
Today's Communication / Plan
-
d/c today
Drainage of RLQ cystic lesion to be done as outpatient; order faxed to IR (from my office EMR)
I'll see patient in the office on 04/12 to consider treatment options
Impression
Impression
Right lower quadrant pain
Nausea and vomiting
Pelvic cystic mass
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
HTN
Plan
Plan
d/c today
Drainage of RLQ cystic lesion to be done as outpatient; order faxed to IR (from my office EMR)
I'll see patient in the office on 04/12 to consider treatment options
Subjective/Objective
Subjective/Objective
Patient seen on am rounds, eager to go home
Feeling okay, mostly discomfort in RLQ
Vital Signs:
Vital Signs
Temp Pulse Resp BP Pulse Ox
99.1 F 101 16 143/83 96
04/09/25 11:00 04/09/25 11:00 04/09/25 11:00 04/09/25 11:00 04/09/25 11:00
Lab Results:
Laboratory Data
WBC 12.4 10^3/uL (4.8-10.8) H 04/09/25 08:26
Hgb 13.0 g/dL (12.0-16.0) 04/09/25 08:26
Plt Count 161 10^3/uL (130-400) D 04/09/25 08:26
eGFR > 60.00 04/09/25 08:26
== END 2025-04-09 12:23 | disposition home or self-care (01) | DRG 375 ==
LOC: 4 WEST ACU 22:18
PROVIDERS: ADMITTING PHYSICIAN Hospitalist; ATTENDING PHYSICIAN Student in an Organized Health Care Education/Training Program; CONSULT PHYSICIAN Obstetrics & Gynecology Gynecologic Oncology; EMERGENCY PHYSICIAN Emergency Medicine; FAMILY PHYSICIAN Family Medicine; OTHER PHYSICIAN Internal Medicine Hematology & Oncology
DX: C78.6 Secondary malignant neoplasm of retroperitoneum and peritoneum (principal); C18.9 Malignant neoplasm of colon, unspecified; J98.11 Atelectasis; R18.8 Other ascites; E78.00 Pure hypercholesterolemia, unspecified; I10 Essential (primary) hypertension; K59.00 Constipation, unspecified; M81.0 Age-related osteoporosis without current pathological fracture; N28.1 Cyst of kidney, acquired; Z80.0 Family history of malignant neoplasm of digestive organs; Z82.49 Family history of ischemic heart disease and other diseases of the circulatory system; Z85.828 Personal history of other malignant neoplasm of skin; Z90.49 Acquired absence of other specified parts of digestive tract
CPT/HCPCS: 74177; 80048; 80053; 81003; 81015; 82248; 85025; 85027; 93005; 96361; 96374; 99284; Q9967

== ENCOUNTER → 2025-04-12 13:02 | Outpatient (REF) | payer MEDICARE, BC, SELFPAY ==
[2025-04-12 13:15] VITALS: BP 145/63; BP_SYST 92
[2025-04-12 14:00] VITALS: BP 141/68; BP_SYST 74
[2025-04-12 14:19] VITALS: BP 141/68
== END ==
LOC: RADI 13:02
PROVIDERS: ATTENDING PHYSICIAN Internal Medicine Hematology & Oncology; FAMILY PHYSICIAN Family Medicine
DX: N94.89 Other specified conditions associated with female genital organs and menstrual cycle (principal); C24.9 Malignant neoplasm of biliary tract, unspecified
CPT/HCPCS: 10160; 76942; 88173; 88305

== ENCOUNTER → 2025-04-25 15:48 | Outpatient (REF) | payer MEDICARE, BC, SELFPAY ==
[2025-04-25 16:01] LABS: Hematocrit 36.4 % (37.0-47.0); Hemoglobin 12.0 g/dL (12.0-16.0); Mean Corp Hgb Conc. 33.0 g/dL (33.0-37.0); Mean Corpuscular Volume 95.3 fL (81.0-99.0); Nucleated Red Blood Cells % 0 %; Platelet Count 296 10^3/uL (130-400); Red Cell Dist. Width 13.0 % (11.5-14.5)
[2025-04-25 16:17] LABS: ALT (SGPT) 47 U/L (0-35); AST (SGOT) 50 U/L (14-36); Albumin 3.6 g/dl (3.5-5.0); Alkaline Phosphatase 173 U/L (38-126); Blood Urea Nitrogen 9 mg/dl (7-17); Calcium 9.7 mg/dl (8.4-10.2); Carbon Dioxide 29 mmol/L (22-30); Chloride 103 mmol/L (98-107); Glucose 128 mg/dl (70-99); Magnesium 2.0 mg/dl (1.6-2.3); Potassium 3.9 mmol/L (3.5-5.1); Sodium 137 mmol/L (135-145); Total Protein 6.7 g/dl (6.3-8.2); eGFR > 60.00
== END ==
LOC: OIDL 15:48
PROVIDERS: ATTENDING PHYSICIAN Internal Medicine Hematology & Oncology
DX: N83.201 Unspecified ovarian cyst, right side (principal); C22.1 Intrahepatic bile duct carcinoma
CPT/HCPCS: 80053; 83735; 85025

== ENCOUNTER → 2025-04-28 08:25 | Outpatient (REF) | payer MEDICARE, BC, SELFPAY ==
[2025-04-28 08:57] VITALS: BP 133/67; BP_SYST 87; BMI 24.0
[2025-04-28] MEDS: VANCOCIN 200 IV (09:28)
[2025-04-28 10:25] VITALS: BP 137/67; BP_SYST 79
[2025-04-28 10:40] VITALS: BP 129/86; BP_SYST 90
== END ==
LOC: RADI 08:25
PROVIDERS: ATTENDING PHYSICIAN Internal Medicine Hematology & Oncology; FAMILY PHYSICIAN Family Medicine
DX: C22.1 Intrahepatic bile duct carcinoma (principal)
CPT/HCPCS: 36561; 76937; 77001; 99152; 99153; C1788

== ENCOUNTER → 2025-05-05 10:53 | Outpatient (REF) | payer MEDICARE, BC, SELFPAY ==
[2025-05-05 11:52] LABS: Hematocrit 37.1 % (37.0-47.0); Hemoglobin 12.2 g/dL (12.0-16.0); Mean Corp Hgb Conc. 32.9 g/dL (33.0-37.0); Mean Corpuscular Volume 94.6 fL (81.0-99.0); Nucleated Red Blood Cells % 0 %; Platelet Count 131 10^3/uL (130-400); Red Cell Dist. Width 12.8 % (11.5-14.5)
[2025-05-05 12:38] LABS: ALT (SGPT) 44 U/L (0-35); AST (SGOT) 44 U/L (14-36); Albumin 3.8 g/dl (3.5-5.0); Alkaline Phosphatase 142 U/L (38-126); Blood Urea Nitrogen 11 mg/dl (7-17); Calcium 9.9 mg/dl (8.4-10.2); Carbon Dioxide 30 mmol/L (22-30); Chloride 102 mmol/L (98-107); Glucose 120 mg/dl (70-99); Magnesium 1.8 mg/dl (1.6-2.3); Potassium 4.1 mmol/L (3.5-5.1); Sodium 135 mmol/L (135-145); Total Protein 6.9 g/dl (6.3-8.2); eGFR > 60.00
== END ==
LOC: REG 10:53
PROVIDERS: ATTENDING PHYSICIAN Internal Medicine Hematology & Oncology; FAMILY PHYSICIAN Family Medicine
DX: N83.201 Unspecified ovarian cyst, right side (principal); C22.1 Intrahepatic bile duct carcinoma
CPT/HCPCS: 36415; 80053; 83735; 85025

== ENCOUNTER 2025-05-15 15:44 | Emergency (ER) | payer SELFPAY ==
[2025-05-15 15:47] VITALS: BP 134/71
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
[2025-05-15 17:50] LABS: Blood Urea Nitrogen 13 mg/dl (7-17); Calcium 9.9 mg/dl (8.4-10.2); Carbon Dioxide 27 mmol/L (22-30); Chloride 103 mmol/L (98-107); Glucose 116 mg/dl (70-99); Potassium 3.3 mmol/L (3.5-5.1); Sodium 136 mmol/L (135-145); eGFR > 60.00
[2025-05-15] MEDS: ELIQUIS 10 MG PO (20:17)
[2025-05-15 20:21] VITALS: BP 139/74
== END 2025-05-15 20:42 | disposition home or self-care (01) ==
LOC: EMR 15:44
PROVIDERS: Nurse Practitioner; EMERGENCY PHYSICIAN Emergency Medicine; FAMILY PHYSICIAN Family Medicine
DX: S20.219A Contusion of unspecified front wall of thorax, initial encounter (principal); I26.99 Other pulmonary embolism without acute cor pulmonale; V49.50XA Passenger injured in collision with unspecified motor vehicles in traffic accident, initial encounter; W22.10XA Striking against or struck by unspecified automobile airbag, initial encounter; Y92.410 Unspecified street and highway as the place of occurrence of the external cause; I10 Essential (primary) hypertension; E78.00 Pure hypercholesterolemia, unspecified; Z85.05 Personal history of malignant neoplasm of liver; Z85.038 Personal history of other malignant neoplasm of large intestine; Z87.442 Personal history of urinary calculi
CPT/HCPCS: 99284; 70450; 71260; 72125; 80048; Q9967

== ENCOUNTER → 2025-05-18 10:16 | Outpatient (REF) | payer MEDICARE, BC, SELFPAY ==
[2025-05-18 12:16] LABS: Absolute Neutrophils -Man Diff 0.9 10^3/uL (1.4-6.5); Anisocytosis Slight; Hematocrit 33.4 % (37.0-47.0); Hemoglobin 11.3 g/dL (12.0-16.0); Hypochromasia 3+; Mean Corp Hgb Conc. 33.8 g/dL (33.0-37.0); Mean Corpuscular Volume 94.4 fL (81.0-99.0); Normal RBC Morphology No; Platelet Count 368 10^3/uL (130-400); Platelets Checked Yes; Red Cell Dist. Width 13.6 % (11.5-14.5); Total Cells Counted 100
[2025-05-18 13:14] LABS: ALT (SGPT) 29 U/L (0-35); AST (SGOT) 33 U/L (14-36); Albumin 4.0 g/dl (3.5-5.0); Alkaline Phosphatase 134 U/L (38-126); Blood Urea Nitrogen 8 mg/dl (7-17); Calcium 9.8 mg/dl (8.4-10.2); Carbon Dioxide 29 mmol/L (22-30); Chloride 102 mmol/L (98-107); Glucose 110 mg/dl (70-99); Magnesium 2.0 mg/dl (1.6-2.3); Potassium 4.6 mmol/L (3.5-5.1); Sodium 138 mmol/L (135-145); Total Protein 7.0 g/dl (6.3-8.2); eGFR > 60.00
[2025-05-19 23:53] LABS: CA 19-9 8180 U/mL (<=35)
== END ==
LOC: REG 10:16
PROVIDERS: ATTENDING PHYSICIAN Internal Medicine Hematology & Oncology; FAMILY PHYSICIAN Family Medicine
DX: N83.201 Unspecified ovarian cyst, right side (principal); C22.1 Intrahepatic bile duct carcinoma; R53.83 Other fatigue
CPT/HCPCS: 36415; 80053; 83735; 84443; 85025; 86301

== ENCOUNTER → 2025-05-25 09:52 | Outpatient (REF) | payer MEDICARE, BC, SELFPAY ==
[2025-05-25 10:52] LABS: Hematocrit 37.3 % (37.0-47.0); Hemoglobin 12.2 g/dL (12.0-16.0); Mean Corp Hgb Conc. 32.7 g/dL (33.0-37.0); Mean Corpuscular Volume 97.6 fL (81.0-99.0); Nucleated Red Blood Cells % 0 %; Platelet Count 435 10^3/uL (130-400); Red Cell Dist. Width 15.7 % (11.5-14.5)
[2025-05-25 11:41] LABS: ALT (SGPT) 20 U/L (0-35); AST (SGOT) 31 U/L (14-36); Albumin 4.2 g/dl (3.5-5.0); Alkaline Phosphatase 147 U/L (38-126); Blood Urea Nitrogen 8 mg/dl (7-17); Calcium 10.9 mg/dl (8.4-10.2); Carbon Dioxide 28 mmol/L (22-30); Chloride 106 mmol/L (98-107); Glucose 105 mg/dl (70-99); Magnesium 2.0 mg/dl (1.6-2.3); Potassium 5.0 mmol/L (3.5-5.1); Sodium 140 mmol/L (135-145); Total Protein 7.3 g/dl (6.3-8.2); eGFR > 60.00
== END ==
LOC: REG 09:52
PROVIDERS: ATTENDING PHYSICIAN Internal Medicine Hematology & Oncology; FAMILY PHYSICIAN Family Medicine
DX: N83.201 Unspecified ovarian cyst, right side (principal); C22.1 Intrahepatic bile duct carcinoma; R53.83 Other fatigue
CPT/HCPCS: 36415; 80053; 83735; 85025

== ENCOUNTER → 2025-05-26 09:42 | Outpatient (REF) | payer MEDICARE, BC, SELFPAY ==
[2025-05-26 10:22] LABS: Calcium 9.0 mg/dl (8.4-10.2)
== END ==
LOC: OIDL 09:42
PROVIDERS: ATTENDING PHYSICIAN Internal Medicine Hematology & Oncology
DX: N83.201 Unspecified ovarian cyst, right side (principal); C22.1 Intrahepatic bile duct carcinoma; R53.83 Other fatigue; Z13.29 Encounter for screening for other suspected endocrine disorder; Z51.12 Encounter for antineoplastic immunotherapy; I26.99 Other pulmonary embolism without acute cor pulmonale
CPT/HCPCS: 82310

== ENCOUNTER → 2025-05-31 10:23 | Outpatient (REF) | payer MEDICARE, BC, SELFPAY ==
[2025-05-31 11:07] LABS: Hematocrit 34.2 % (37.0-47.0); Hemoglobin 11.2 g/dL (12.0-16.0); Mean Corp Hgb Conc. 32.7 g/dL (33.0-37.0); Mean Corpuscular Volume 97.7 fL (81.0-99.0); Nucleated Red Blood Cells % 0 %; Platelet Count 207 10^3/uL (130-400); Red Cell Dist. Width 15.1 % (11.5-14.5)
[2025-05-31 11:31] LABS: ALT (SGPT) 27 U/L (0-35); AST (SGOT) 34 U/L (14-36); Albumin 4.0 g/dl (3.5-5.0); Alkaline Phosphatase 115 U/L (38-126); Blood Urea Nitrogen 13 mg/dl (7-17); Calcium 10.0 mg/dl (8.4-10.2); Carbon Dioxide 30 mmol/L (22-30); Chloride 104 mmol/L (98-107); Glucose 106 mg/dl (70-99); Potassium 3.7 mmol/L (3.5-5.1); Sodium 139 mmol/L (135-145); Total Protein 6.8 g/dl (6.3-8.2); eGFR > 60.00
[2025-05-31 11:40] LABS: Magnesium 1.9 mg/dl (1.6-2.3)
== END ==
LOC: REG 10:23
PROVIDERS: ATTENDING PHYSICIAN Internal Medicine Hematology & Oncology; FAMILY PHYSICIAN Family Medicine
DX: N83.201 Unspecified ovarian cyst, right side (principal); C22.1 Intrahepatic bile duct carcinoma; R53.83 Other fatigue
CPT/HCPCS: 36415; 80053; 83735; 85025

== ENCOUNTER → 2025-06-15 10:26 | Outpatient (REF) | payer BC, MEDICARE, SELFPAY ==
[2025-06-15 11:25] LABS: Hematocrit 32.8 % (37.0-47.0); Hemoglobin 10.4 g/dL (12.0-16.0); Mean Corp Hgb Conc. 31.7 g/dL (33.0-37.0); Mean Corpuscular Volume 101.5 fL (81.0-99.0); Nucleated Red Blood Cells % 0 %; Platelet Count 130 10^3/uL (130-400); Red Cell Dist. Width 18.5 % (11.5-14.5)
[2025-06-15 12:46] LABS: ALT (SGPT) 17 U/L (0-35); AST (SGOT) 29 U/L (14-36); Albumin 3.9 g/dl (3.5-5.0); Alkaline Phosphatase 150 U/L (38-126); Blood Urea Nitrogen 7 mg/dl (7-17); Calcium 9.8 mg/dl (8.4-10.2); Carbon Dioxide 28 mmol/L (22-30); Chloride 106 mmol/L (98-107); Glucose 96 mg/dl (70-99); Magnesium 1.9 mg/dl (1.6-2.3); Potassium 4.4 mmol/L (3.5-5.1); Sodium 139 mmol/L (135-145); Total Protein 6.6 g/dl (6.3-8.2); eGFR > 60.00
[2025-06-16 21:34] LABS: CA 19-9 4272 U/mL (<=35)
== END ==
LOC: REG 10:26
PROVIDERS: ATTENDING PHYSICIAN Internal Medicine Hematology & Oncology; FAMILY PHYSICIAN Family Medicine
DX: N83.201 Unspecified ovarian cyst, right side (principal); C22.1 Intrahepatic bile duct carcinoma; R53.83 Other fatigue
CPT/HCPCS: 36415; 80053; 83735; 84443; 85025; 86301

== ENCOUNTER → 2025-06-23 09:09 | Outpatient (REF) | payer BC, MEDICARE, SELFPAY ==
[2025-06-23 10:14] LABS: ALT (SGPT) 28 U/L (0-35); AST (SGOT) 36 U/L (14-36); Albumin 3.7 g/dl (3.5-5.0); Alkaline Phosphatase 110 U/L (38-126); Blood Urea Nitrogen 15 mg/dl (7-17); Calcium 9.7 mg/dl (8.4-10.2); Carbon Dioxide 30 mmol/L (22-30); Chloride 105 mmol/L (98-107); Glucose 103 mg/dl (70-99); Magnesium 1.7 mg/dl (1.6-2.3); Potassium 3.5 mmol/L (3.5-5.1); Sodium 136 mmol/L (135-145); Total Protein 6.6 g/dl (6.3-8.2); eGFR > 60.00
[2025-06-23 11:16] LABS: Hematocrit 30.3 % (37.0-47.0); Hemoglobin 9.7 g/dL (12.0-16.0); Mean Corp Hgb Conc. 32.0 g/dL (33.0-37.0); Mean Corpuscular Volume 100.0 fL (81.0-99.0); Platelet Count 89 10^3/uL (130-400); Red Cell Dist. Width 18.4 % (11.5-14.5)
[2025-06-23 11:56] LABS: Nucleated Red Blood Cells % 0 %
== END ==
LOC: REG 09:09
PROVIDERS: ATTENDING PHYSICIAN Internal Medicine Hematology & Oncology; FAMILY PHYSICIAN Family Medicine
DX: N83.201 Unspecified ovarian cyst, right side (principal); C22.1 Intrahepatic bile duct carcinoma; R53.83 Other fatigue
CPT/HCPCS: 36415; 80053; 83735; 85025

== ENCOUNTER → 2025-07-01 09:05 | Outpatient (REF) | payer BC, MEDICARE, SELFPAY ==
[2025-07-01 11:39] LABS: Hematocrit 24.9 % (37.0-47.0); Hemoglobin 8.0 g/dL (12.0-16.0); Mean Corp Hgb Conc. 32.1 g/dL (33.0-37.0); Mean Corpuscular Volume 100.8 fL (81.0-99.0); Nucleated Red Blood Cells % 0 %; Platelet Count 6 10^3/uL (130-400); Red Cell Dist. Width 17.2 % (11.5-14.5)
== END ==
LOC: REG 09:05
PROVIDERS: ATTENDING PHYSICIAN Internal Medicine Hematology & Oncology; FAMILY PHYSICIAN Family Medicine
DX: N83.201 Unspecified ovarian cyst, right side (principal); C22.1 Intrahepatic bile duct carcinoma; R53.83 Other fatigue; Z13.29 Encounter for screening for other suspected endocrine disorder; Z51.12 Encounter for antineoplastic immunotherapy; I26.99 Other pulmonary embolism without acute cor pulmonale
CPT/HCPCS: 36415; 85025

== ENCOUNTER 2025-07-01 13:42 | Emergency (ER) | payer BC, MEDICARE, SELFPAY ==
[2025-07-01 13:48] VITALS: BP 120/79
[2025-07-01 14:12] VITALS: BMI 21.1
--- NOTE | 2025-07-01 15:29 | ED.GENMED ---
History of Present Illness
General
Chief Complaint: Abnormal Lab Value
Source: patient
Exam Limitations: none
Time Seen by Provider: 07/01/25 14:57
History of Present Illness
History of Present Illness:
74yoF with a history of bile duct cancer on chemotherapy, pulmonary embolism on Eliquis, hypertension, hyperlipidemia presenting for abnormal outpatient labs. Patient gets lab work weekly. Lab work this morning showed severe thrombocytopenia with
a platelet count of 6. Last platelet count was 89 one week ago. White count was also low at 0.3. Patient was called today by her oncology office and told to go to the ED for a platelet transfusion. She reports intermittent low nosebleed since
yesterday but denies any active bleeding currently. No hematochezia or melena. Her only other symptom is fatigue. No fever, chest pain, shortness of breath. She follows with Dr. Pereira. She is on a chemotherapy regimen that is 2 weeks on, 1
week off and she just finished her third cycle last week.
Past History
Past History
ED Past Medical History: Cancer (liver), HTN, Hypercholesterolemia and Other (Kidney stones)
ED Past Surgical History: Other ( and colon cancer, laparoscopy)
Social History
Tobacco: Non-smoker
Alcohol: Occasional
Drug: None
Personal:
Living: with family
Employment: Retired
Phy Exam
General Physical Exam
General Presentation: well appearing and no apparent distress
General Skin: warm and dry
General Habitus: normal
General Mental: alert
ENT Exam
ENT Exam: normocephalic
Additional ENT: Dried blood at nares
Cardiovascular Exam
Cardiovascular Exam: regular rate/rhythm and systolic murmur
Pulmonary Exam
Pulmonary Exam: lungs clear, no respiratory distress, no rales, no crackles, no rhonchi and no wheezing
Neurological Exam
Neurological Exam: alert
[place] Coma Scale
Eye Opening: Spontaneous
Verbal Response: Oriented
Motor Response: Obeys Commands
GCS Total Score: 15
Skin Exam
Skin Exam: normal color and warm/dry
Psychiatric Exam
Psychiatric Exam: normal mood/affect
Course
Orders/Labs/Results
Orders:
Orders
07/01/25 15:21
Blood Bank Products [* Blood Bank Products] Urgent
Blood Bank Products: *Plt Single Donor Leuko
Quantity: 1
Transfuse Today: Yes
Reason: Thrombocytopenia
07/01/25 15:47
Type+Screen Urgent
07/01/25 16:52
Acetaminophen [Tylenol] 1,000 mg PO NOW STA
Vital Signs
Initial and Last Documented VS:
Initial Vital Signs
Temp Pulse Resp BP Pulse Ox
98.4 F 104 16 120/79 98
07/01/25 13:48 07/01/25 13:48 07/01/25 13:48 07/01/25 13:48 07/01/25 13:48
Last Documented Vital Signs
Temp Pulse Resp BP Pulse Ox
98.5 F 90 18 120/55 95
07/01/25 17:54 07/01/25 17:54 07/01/25 17:54 07/01/25 17:54 07/01/25 17:54
MDM/Problems Addressed
Differential Diagnosis Includes:
74yoF sent by oncology office for platelet transfusion. Hx of bile duct carcinoma on chemo. Went for weekly labs today and platelet count 6. C/o intermittent epistaxis since yesterday. Dried blood noted on exam without active bleeding. Leukopenia
also noted on labs with WBC of 0.3. Patient afebrile without infectious symptoms.
Consent obtained and 1 pack of platelets ordered for transfusion. Discussed case with Dr. Jacob and no further intervention needed in ED. Patient tolerated transfusion well. She has an appt scheduled on Friday with Dr. Pereira. She was advised to
return to the ER with any worsening symptoms including fevers or uncontrolled pain. Patient in agreement with plan and she was discharged in stable condition.
*Pulse Oximetry
SaO2: 98
Oxygen Mode of Delivery: Room air
Patient hypoxic: no
*Critical Care Note
Total Time (30-74mins, 75-104mins- exclusive of procedures): Not Applicable
ED Attending Note
-
Portions of this chart may have been created with voice recognition software.� Occasional wrong word or��sound alike� substitutions may have occurred due to the inherent limitations of voice recognition software.
Discharge Plan
Departure
Patient Disposition: Home (Routine Discharge)
Date of Disposition: 07/01/25
Time of Disposition: 17:51
Patient with high blood pressure during this ER visit?: No
Discharge Problem:
Thrombocytopenia
Instructions: Managing increased bleeding risk
Prescriptions:
No Action
diltiazem HCl 180 MG capsule,extended release 24hr
180 mg PO HS
ibandronate 150 mg Tablet
150 mg PO QMONTH
atorvastatin 20 mg Tablet
20 mg PO DAILY
Eliquis DVT-PE Treat 30D Start 5 mg (74 tabs) tablets,dose pack
See Rx Instructions .ROUTE .COMPLEX Qty: 74 0RF
Rx Instructions:
orally per package directions
Referrals:
Andres Llanos, DO [Family Provider, Family Practice]
Activity Restrictions/Additional Instructions:
Please follow-up with your oncologist on Friday as previously scheduled. You should return to the ER with any worsening symptoms including fevers or uncontrolled bleeding.
Interventions
Interventions:
*Risk Screen - Suicide Last Done: 07/01/25 13:48
*General Assessment Last Done: 07/01/25 14:11
*Neglect/Abuse Screening Last Done: 07/01/25 13:48
*ED- Fall Risk Assessment Last Done: 07/01/25 14:10
*ED COVID-19 Vaccine History Last Done: 07/01/25 14:10
*ED Influenza Vaccine History Last Done: 07/01/25 14:10
*Nursing Disposition Last Done: 07/01/25 18:09
Discharge Date and Time
Discharge Date/Time: 07/01/25 18:09
Print Language: MALAWIAN
[2025-07-01] MEDS: TYLENOL 1000 MG PO (17:01)
[2025-07-01 17:09] VITALS: BP 145/57
[2025-07-01 17:26] VITALS: BP 127/56
[2025-07-01 17:54] VITALS: BP 120/55
== END 2025-07-01 18:09 | disposition home or self-care (01) ==
LOC: EMR 13:42
PROVIDERS: EMERGENCY PHYSICIAN Emergency Medicine; FAMILY PHYSICIAN Family Medicine
DX: D69.6 Thrombocytopenia, unspecified (principal); I10 Essential (primary) hypertension; E78.00 Pure hypercholesterolemia, unspecified; Z79.01 Long term (current) use of anticoagulants; Z85.038 Personal history of other malignant neoplasm of large intestine; Z85.05 Personal history of malignant neoplasm of liver; Z85.09 Personal history of malignant neoplasm of other digestive organs; Z86.711 Personal history of pulmonary embolism; Z87.442 Personal history of urinary calculi
CPT/HCPCS: 99283; 36415; 85025; 86850; 86900; 86901; P9073

== ENCOUNTER 2025-07-02 03:52 | Inpatient (IN) | payer MEDICARE, BC, SELFPAY ==
[2025-07-02] VITALS (14 sets, daily range): BP systolic 103–143; BP diastolic 45–66; BMI 21.4; BMI 20.9
[2025-07-02] MEDS: TYLENOL PO ×2 (01:37→02:00)
[2025-07-02 01:38] LABS: Hematocrit 19.5 % (37.0-47.0); Hemoglobin 6.6 g/dL (12.0-16.0); Mean Corp Hgb Conc. 33.8 g/dL (33.0-37.0); Mean Corpuscular Volume 94.7 fL (81.0-99.0); Nucleated Red Blood Cells % 0 %; Platelet Count 15 10^3/uL (130-400); Red Cell Dist. Width 17.0 % (11.5-14.5)
[2025-07-02 01:39] LABS: INR 1.12; PT 14.7 Sec (11.4-14.6)
[2025-07-02 01:40] LABS: APTT 30.1 Sec (23.4-35.0)
[2025-07-02 01:50] LABS: COVID-19 Antigen Negative (Negative)
--- NOTE | 2025-07-02 01:51 | ED.GENMED ---
History of Present Illness
General
Chief Complaint: Fever
Source: patient, records and spouse
Exam Limitations: none
Time Seen by Provider: 07/02/25 00:56
Nursing documentation reviewed up to this point in time: agreed with
History of Present Illness
History of Present Illness:
74-year-old female with past with hypertension, hyperlipidemia and history of colon cancer with metastasis who presents to the ER with her for evaluation of fever. [facility] She yesterday had some nosebleeding in the setting of her recent treatments and had blood work drawn today which showed severe thrombocytopenia with a platelet count of 6000. She had a transfusion of platelets today at around 5 PM. She said
she felt fine after but at around 11 PM she started to have chills and fever of 100.6 �F. Took some Tylenol and came to the ER. She denies any other symptoms such as URI symptoms, cough, shortness of breath, abdominal pain, vomiting or diarrhea.
She has not noted any urinary symptoms. No other acute complaints.
Past History
Past History
ED Past Medical History: Cancer (liver), HTN, Hypercholesterolemia and Other (Kidney stones)
ED Past Surgical History: Other ( and colon cancer, laparoscopy)
Social History
Tobacco: Non-smoker
Alcohol: Occasional
Drug: None
Personal:
Living: with family
Employment: Retired
Review of Systems
Review of Systems
All Other Systems: ROS reviewed and negative except as documented in HPI and ROS
Constitutional: Reports fever and chills
EENT: Denies sore throat or runny nose
Respiratory: Denies cough or trouble breathing
Cardiac: Denies chest pain
ABD/GI: Denies abdominal pain, nausea, vomiting or diarrhea
: Denies dysuria or flank pain
Musculoskeletal: Denies neck pain or back pain
Neurological: Denies headache
Phy Exam
Physical Exam
Physical Exam:
General: Awake, alert, oriented x3; no acute distress
Head: Normocephalic, atraumatic
Eyes: Conjunctiva normal, sclera anicteric
Throat: Airway intact, handling secretions
Neck: Trachea midline, supple without meningismus
Lungs: Clear to auscultation bilaterally, no wheezing, rales, rhonchi
Heart: Tachycardia with regular rhythm, no murmurs, gallops, or rubs
Abd: Soft, non distended, nontender
Neuro: Grossly intact
Skin: No rash noted
Extremities: Warm and well-perfused
Scores
Heart Failure Risk
Heart Failure Risk Score: Not Applicable
Heart Score for Chest Pain Patients
STEMI patient?: Not applicable
Withdrawal Assessment of Alcohol
Withdrawal Assessment Completed?: Not applicable
Sepsis
Sepsis Screening
Sepsis Assessment: Sepsis
Sepsis Screen
Sepsis Screen: Sepsis
Date: 07/02/25
Time: 01:46
Course
Orders/Labs/Results
Orders:
Orders
07/02/25 00:58
Acetaminophen [Tylenol] 650 mg PO NOW STA
07/02/25 01:18
Complete Blood Count/With Diff Urgent
Comprehensive Metabolic Panel Urgent
PTT Urgent
Prothrombin Time Urgent
Blood Culture Q30M
EUGENIE Source: Blood/Venous
Specimen Description:
Influenza A+B Rapid Molecular Urgent
EUGENIE Source: Nasal Swab
Specimen Description:
07/02/25 01:19
COVID-19 Antigen Urgent
Source: Nasal Swab
Lactate Level [Lactic Acid] Urgent
07/02/25 01:30
Blood Culture Q30M
EUGENIE Source: Blood/Venous
Specimen Description:
07/02/25 01:41
Urinalysis Reflex To Culture Urgent
Date Specimen was Collected: 07/02/25
Time Specimen was Collected: 01:33
Urine Microscopic Reflex Cult Urgent
07/02/25 01:46
Cefepime HCl [Maxipime] 2,000 mg IV NOW STA
Vancomycin [Vancocin] 1,500 mg 0.9% Sodium Chloride 500 ml [Nss] 500 ml IV NOW
07/02/25 01:47
* Blood Bank Products Urgent
Blood Bank Products: *Packed RBC Leuko (PRBC's
Quantity: 1
Transfuse Today: Yes
Reason: Anemia
07/02/25 02:01
Sterile Water [Sterile Water For Injection] 10 ml .ROUTE .STK-MED ONE
07/02/25 02:03
Potassium Chloride [KCl] 40 meq PO NOW STA
Potassium Chloride [KCl] 40 meq 0.9% Sodium Chloride 250 ml [Nss] 250 ml IV NOW
07/02/25 02:06
CR Chest - 2 Views Urgent
Comment:
Reason For Exam: fever
Abnormal Lab Results
07/02/25 07/02/25
01:18 01:41
WBC 0.2 L* 10^3/uL
(4.8-10.8)
RBC 2.06 L 10^6/uL
(4.20-5.40)
Hgb 6.6 L* g/dL
(12.0-16.0)
Hct 19.5 L* %
(37.0-47.0)
MCH 32.0 H pg
(27.0-31.0)
RDW 17.0 H %
(11.5-14.5)
Plt Count 15 L* D 10^3/uL
(130-400)
Absolute Neuts (auto) 0.0 L* 10^3/uL
(1.4-6.5)
Absolute Lymphs (auto) 0.2 L 10^3/uL
(1.2-3.4)
Neutrophils % 4.2 L %
(42.2-75.2)
Lymphocytes % 70.8 H %
(20.5-51.1)
Monocytes % 25.0 H %
(1.7-9.3)
PT 14.7 H Sec
(11.4-14.6)
Sodium 134 L mmol/L
(135-145)
Potassium 3.0 L mmol/L
(3.5-5.1)
Creatinine 0.4 L mg/dL
(0.6-1.0)
Glucose 133 H mg/dl
(70-99)
Total Protein 5.7 L g/dl
(6.3-8.2)
Albumin 3.2 L g/dl
(3.5-5.0)
Ur Occult Blood Reflex 4+ A
(Negative)
Urine Urobilinogen 2+ A
(Neg - 1+)
Urine Albumin (Reflex) 2+ A
(Neg - Trace)
07/02/25 01:18
07/02/25 01:18
Vital Signs
Initial and Last Documented VS:
Initial Vital Signs
Temp Pulse Resp BP Pulse Ox
38.6 C H 125 20 117/59 97
07/02/25 00:33 07/02/25 00:33 07/02/25 00:33 07/02/25 00:33 07/02/25 00:33
Last Documented Vital Signs
Temp Pulse Resp BP Pulse Ox
38.4 C H 91 16 117/59 96
07/02/25 01:04 07/02/25 01:03 07/02/25 01:03 07/02/25 00:33 07/02/25 01:52
MDM/Problems Addressed
Differential Diagnosis Includes:
Transfusion related fever, UTI, pneumonia, viral syndrome, bacteremia
MDM/Problems Addressed:
74-year-old female presents for evaluation of fever and chills this evening after receiving platelet transfusion earlier in the day. She has no colon cancer on chemotherapy. She arrives just normotensive but tachycardic and febrile. Exam as
above. Labs were sent off including a CBC and a CMP�CBC shows pancytopenia with neutropenia ANC 0. She has known thrombocytopenia improved after platelets earlier today. She has new anemia with a hemoglobin of 6.6. She denies any bleeding aside
from nosebleed yesterday. Will transfuse PRBCs. Chemistry shows hypokalemia with a potassium of 3.0 which were repleted. Urinalysis sent off will obtain chest x-ray. Viral swabs were negative. Blood culture sent off. Cover with broad-spectrum
antibiotics for neutropenic fever. Admit for continued management pending cultures. Discussed case with hospitalist.
Acute Exacerbation and/or Progression of Chronic Illness:
Acute on chronic anemia treated with blood transfusion
*Radiology
Radiology exam reviewed: preliminary read by ED provider
*Pulse Oximetry
SaO2: 96
Oxygen Mode of Delivery: Room air
Patient hypoxic: no (96%)
*Critical Care Note
Total Time (30-74mins, 75-104mins- exclusive of procedures): Not Applicable
Data Reviewed
Source: patient, records and spouse
Patient Management
Discussion with other providers: Hospitalist (Discussed with hospitalist)
Escalation/DeEscalation of care consider admission/obs:
Admission indicated
ED Attending Note
-
Portions of this chart may have been created with voice recognition software.� Occasional wrong word or��sound alike� substitutions may have occurred due to the inherent limitations of voice recognition software.
Discharge Plan
Departure
Patient Disposition: Admit
Date of Disposition: 07/02/25
Time of Disposition: 02:07
Admit to doctor: Cesar
Presentation/result/management discussed w/ accepting MD/DO: Hospitalist
Discharge Problem:
Neutropenic fever
Prescriptions:
No Action
diltiazem HCl 180 MG capsule,extended release 24hr
180 mg PO HS
ibandronate 150 mg Tablet
150 mg PO QMONTH
atorvastatin 20 mg Tablet
20 mg PO DAILY
Eliquis DVT-PE Treat 30D Start 5 mg (74 tabs) tablets,dose pack
See Rx Instructions .ROUTE .COMPLEX Qty: 74 0RF
Rx Instructions:
orally per package directions
Referrals:
Andres Llanos, [Family Provider, Family Practice]
Interventions
Interventions:
*Risk Screen - Suicide Last Done: 07/02/25 00:33
*General Assessment Last Done: 07/02/25 00:33
*Neglect/Abuse Screening Last Done: 07/02/25 00:33
*ED- Fall Risk Assessment Last Done: 07/02/25 00:33
*ED COVID-19 Vaccine History Last Done: 07/02/25 00:33
*ED Influenza Vaccine History Last Done: 07/02/25 00:33
Discharge Date and Time
Print Language: MALAGASY
[2025-07-02 01:58] LABS: ALT (SGPT) 15 U/L (0-35); AST (SGOT) 18 U/L (14-36); Albumin 3.2 g/dl (3.5-5.0); Alkaline Phosphatase 102 U/L (38-126); Blood Urea Nitrogen 11 mg/dl (7-17); Calcium 8.7 mg/dl (8.4-10.2); Carbon Dioxide 26 mmol/L (22-30); Chloride 102 mmol/L (98-107); Estimated Creatinine Clearance 80 ml/min; Glucose 133 mg/dl (70-99); Potassium 3.0 mmol/L (3.5-5.1); Sodium 134 mmol/L (135-145); Total Protein 5.7 g/dl (6.3-8.2); eGFR > 60.00
[2025-07-02 01:59] LABS: Urine Character Clear (Clear)
[2025-07-02 02:18] LABS: Urine Squamous Cell >30 /LPF (Few)
[2025-07-02 02:19] LABS: Urine Red Blood Cell 40-50 /HPF (0-2)
[2025-07-02] MEDS: MAXIPIME 2000 MG IV ×3 (02:20→17:26)
[2025-07-02] MEDS: KCL 40 MEQ PO (02:31)
[2025-07-02] MEDS: VANCOCIN 530 MG IV (02:35)
--- NOTE | 2025-07-02 03:40 | HPS.HSE ---
Family Physician
-
Family Physician: Andres Llanos
Chief Complaint
-
Fever
History of Present Illness
Patient is a 74y F with PMH significant for cholangiocarcinoma on chemotherapy who presents to ED complaining of fever / chills. Patient is currently undergoing chemotherapy regimen with gemcitabine, cisplatin and Keytruda and received her most
recent dose on Friday. She followed this up with a dose of G-CSF on Friday of this week. she developed a 'trickle' of a nosebleed. She spoke with Hematology and was sent for outpatient labs. Her platelet count was 6k and arrangements
were made for platelet transfusion which she had today around 5PM. She has not previously had platelet / blood product transfusion.
This evening at home, patient developed chills and checked her temperature which was elevated. She presented to the ED for further evaluation.
She denies any recent headache, sore throat, cough, abdominal pain, N/V/D, urinary symptoms, etc.
Patient was started on Eliquis last month after LLL pulmonary embolism was discovered. Today she was instructed to hold this given thrombocytopenia.
Medical History
Past Medical History
Past Medical History: Reports Other
Additional Past Medical History:
Stage IV Cholangiocarcinoma
Hypertension
Colon Cancer
Skin Cancer
Osteoporosis
Past Surgical History: Reports Other
Additional Past Surgical History:
Port Placement
Right Hemicolectomy
x 2
Skin Cancer Excision
Social History
Tobacco: Non-smoker
Alcohol: Occasional
Drug: None
Family History
Family History: Not pertinent
Allergies / Home Medications
Allergies reflects when Allergies were last updated in [employer].
Home Medications with original date entered in [employer]
Allergy/Medication List:
Allergies
Allergy/AdvReac Type Severity Reaction Status Date / Time
Penicillins Allergy Unknown Verified 07/02/25 00:32
Home Medications
diltiazem HCl 180 mg capsule,extended release 24 hr 180 mg PO HS Blood pressure 01/25/22
ibandronate 150 mg tablet 150 mg PO QMONTH Osteoporosis, postmenopau 02/09/25
atorvastatin 20 mg tablet 20 mg PO DAILY 04/27/25
apixaban 5 mg tablet (Eliquis) 5 mg PO BID 07/02/25
Review of Systems
-
History Source: Patient
A 12 point ROS was completed and negative except as noted: Yes
Constitutional: Reports Fever, Fatigue and Chills
EENT: Denies Sore Throat
Respiratory: Denies Cough or Trouble Breathing
Cardiac: Denies Chest Pain or Palpitations
Abdomen/GI: Denies Abdominal Pain, Nausea, Vomiting or Diarrhea
: Denies Dysuria, Frequency or Flank Pain
Musculoskeletal: Denies Joint Pain or Edema
Neurological: Denies Dizzy or Headache
Psych: Denies Depression or Anxiety
Physical Exam
Vital Signs
Vital Signs
Temp Pulse Resp BP Pulse Ox
101.1 F H 98 20 120/48 96
07/02/25 01:04 07/02/25 02:45 07/02/25 02:45 07/02/25 02:21 07/02/25 02:45
Physical Exam
General: Other (74y F in no distress.)
HEENT: Moist mucous membranes and PERRLA
Respiratory: Clear; No Wheezes, Rales or Rhonchi
Cardiac: S1/S2 and Regular Rhythm; No Murmur
GI: Soft, Non Tender, Non Distended and Normal Bowel Sounds
Musculoskeletal: No Clubbing, No Cyanosis and No Edema
Neuro: AO x 3
Laboratory Results
-
07/02/25 01:18
07/02/25 01:18
Laboratory Results
PT 14.7 Sec (11.4-14.6) H 07/02/25 01:18
INR 1.12 07/02/25 01:18
APTT 30.1 Sec (23.4-35.0) 07/02/25 01:18
Lactic Acid 1.4 mmol/L (0.7-2.0) 07/02/25 01:19
Total Bilirubin 0.3 mg/dl (0.2-1.3) 07/02/25 01:18
AST 18 U/L (14-36) 07/02/25 01:18
ALT 15 U/L (0-35) 07/02/25 01:18
Alkaline Phosphatase 102 U/L (38-126) 07/02/25 01:18
Impression/Plan
-
A/P: Patient is a 74y F with PMH significant for cholangiocarcinoma on chemotherapy who presents to ED c/o fevers / chills.
Neutropenic Fever
- Admit for further evaluation and treatment.
- No symptoms / complaints to suggest focal infectious process.
- ? fever due to neutropenia versus transfusion reaction versus other.
- Continue empiric abx for now pending culture data.
- Follow fever curve and monitor for any new / focal symptoms.
- Hematology evaluation for additional recommendations.
- Neutropenic precautions.
- Patient did receive a dose of G-CSF on Friday of this week - await response.
Pancytopenia secondary to chemotherapy
- Platelet count somewhat improved s/p transfusion this evening (6 to 15).
- No current / active bleeding.
- Hgb = 6.6 down from 8g/dL in the past few days.
- 1 unit PRBCs ordered in the ED.
- Follow for further changes in cell counts.
- Hematology eval as noted above.
Mild Hyponatremia
Mild Hypokalemia
- Replacement given in the ED.
- Check AM labs for improvement. Check Mg.
Stage IV Cholangiocarcinoma
- s/p 3rd cycle of systemic chemo.
- Heme/Onc eval as noted.
LLL Pulmonary Embolism
- Continue to hold Eliquis acutely as recommended to patient.
- Check LE dopplers to rule out concurrent DVT prior to initiating SCDs.
- Resume Eliquis once platelets / other cell counts stable.
- No current chest pain, dyspnea, etc.
Benign Hypertension
- Stable. Continue Cardizem with holding parameters.
DVT Prophylaxis: Holding Eliquis acutely. Place SCDs if LE dopplers are negative.
Code Status: Full
[2025-07-02] MEDS: TYLENOL 650 MG PO (03:46)
[2025-07-02] MEDS: ZOFRAN 4 MG IV (04:20)
[2025-07-02] MEDS: KCL 270 MEQ IV (04:30)
--- NOTE | 2025-07-02 06:37 | PTCARENOTE ---
Pt arrived to unit from ED via stretcher. Ambulated to bed with standby assist of one staff member. Potassium chloride infusing. Orders for 1 unit PRBCs. Refer to TAR. Pt A&Ox3. Oriented to unit. Call light within reach. Plan of care ongoing.
--- NOTE | 2025-07-02 07:54 | PHA.VAN.IN ---
Assessment
- Assessment
Renal Function: Appears similar to baseline
Concomitant Antimicrobials: cefepime
AUC Dosing Plan
- Dosing Variables
Dosing Weight (kg): 60.47
Dosing CrCl (ml/min): 79
Vd coefficient (L/kg): 0.7
- Empiric Dosing
Initial / Loading Dose: 1500mg
Maintenance Regimen: 750mg q12h
Estimated AUC (mcg*h/mL): 524
Estimated Peak (mcg*h/mL): 31.2
Estimated Trough (mcg/ml): 14.4
Estimated Half Life (H): 9.9
- Monitoring
No levels ordered at this time: consider at steady state
Pharmacokinetics Vancomycin I
- -
Patient Age: 74
Patient Sex: Female
Vancomycin Day #: 1
Indication: Neutropenic Fever
Requesting Provider: Dr. Guerrero
Pertinent Antimicrobial Allergies:
PCNs=unknown
Height / Weight:
Height 5 ft 7 in
Actual Weight 60.47 kg
IBW in k.6
- Vital Signs / Lab Results
Temp Pulse Resp BP Pulse Ox
99.1 F 103 18 106/49 95
07/02/25 06:22 07/02/25 06:22 07/02/25 06:22 07/02/25 06:22 07/02/25 06:22
Lab Results - Hematology
07/02/25
01:18
WBC 0.2 L*
Lab Results - Chemistry
07/02/25
01:18
BUN 11
Creatinine 0.4 L
Estimated Creat Clear 80
Albumin 3.2 L
07/02/25
01:19
Lactic Acid 1.4
Lab Results - Urine
07/02/25
01:41
Urine Nitrite (Reflex) Negative
Leukocyte Esterase Rfl Negative
Urine WBC (Reflex) 6-10
Ur Squamous Epith Cells >30
Urine Bacteria (Reflex) Many A
Microbiology Results
07/02/25 01:18 Influenza Types A & B (KAYA) - Final
Nasal Swab Negative for Influenza A & B, NAAT
Negative results must be combined with clinical observations
and patient history.
Nucleic Acid Amplification test (NAAT)performed on the
[employer] platform.
--- NOTE | 2025-07-02 08:23 | W.PN.HOSP.TC ---
Addendum entered and electronically signed by Lisa Lorenzo MD 07/02/25 15:28:
Attending�addendum:
I saw and evaluated the patient. I reviewed the resident�s note and agree with findings and plan as documented in the resident�s note.��patient seen and examined at bedside, at bedside, denies any chest pain or shortness of breath, no
abdominal pain, no nausea, no vomiting, no diarrhea or constipation.
Physical�exam:
GENERAL : Patient is awake, alert, oriented x3
HEENT: Nonicteric sclerae, PERRLA, EOMI. Oropharynx clear. Moist mucous membranes. Conjunctivae appear well perfused.
CHEST: Chest wall is nontender.
HEART: Regular rate and rhythm without murmurs.
LUNGS: Clear to auscultation bilaterally.
ABDOMEN: Soft, positive bowel sounds, nontender, no organomegaly.
RECTAL: Deferred.
MUSCLES/EXTREMITIES: No abnormal range of motion, no swelling.SKIN: No rash, no excessive bruising, petechiae, or purpura.
NEUROLOGIC: Cranial nerves II-XII intact without motor/sensory deficit.
�
Assessment/plan:
Neutropenic fever.
Improved
Continue antibiotic
Pancytopenia
Status post blood transfusion.
Improved
Hyponatremia/hypokalemia/hypomagnesemia.
Replaced and continue to monitor
History of pulmonary embolism.
Eliquis on hold
CODE STATUS: Full code
DVT prophylaxis: SCDs
Diet: Regular diet
Family communication: Discussed with at bedside
Disposition: Blood culture/urine culture pending
�
Total time spent on today�s encounter was 51 minutes which included time spent in counseling the patient/family regarding diagnosis and treatment plan as listed above, goals of care, and symptom management. Case was discussed with nursing staff,
specialists, and care coordinators/case management. All labs and imaging personally reviewed by me. Remainder the time spent in detailed review of previous records, lab data, imaging, and other medical provider documentation.
Original Note:
Today's Communication/Plan
-
Continue IV cefepime + vancomycin
Replete magnesium
Trend CBC, CMP
Hematology oncology following
Assessment / Plan
Assessment / Plan
ASSESSMENT:
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
Peripheral vascular ultrasound lower extremities 07/02/2025: No evidence of DVT bilaterally
PLAN:
# Neutropenic fever
Absolute neutrophil count 0
S/p chemotherapy 06/24/2025. S/p G-CSF 06/28/2025.
Hematology oncology consulted.
Continue IV cefepime and vancomycin
Continue neutropenic precautions
# Pancytopenia secondary to chemotherapy
S/p platelet transfusion 07/01/2025 5 PM after outpatient lab work revealed platelet count 6. Repeat labs 07/02/2025 platelet count 14.
No active bleeding
Hem/Onc rec transfuse for active bleeding or platelet count <10K
Hgb 6.6 07/01/2025. S/p 1 unit PRBCs in the ED 07/01/2025. Repeat Hgb 8.9 07/02/2025.
WBC 0.4. Monitor CBC with differential daily.
# Hyponatremia
# Hypokalemia
# Hypomagnesemia
Na 134, K 3.0 on 07/01/25. Replacement given in ED.
Improved Na 138, K 3.9 07/02/25.
Mg 1.4 07/02/2025. Will give 4 g IV over 4 hours.
Trend BMP
# History of pulmonary embolism�left lower lobe
Eliquis held in the setting of severe thrombocytopenia
Doppler ruled out concurrent DVT. Patient to be started on SCDs.
# Essential hypertension�stable
# Hyperlipidemia
Continue Cardizem with holding parameters
Continue atorvastatin
Anticipated Discharge: > 48 hours
Subjective/Interval History
-
Date of Service: July 02, 2025
Patient evaluated at bedside this morning. She states she feels well. No new complaints.
Objective Data
-
Labs:
Laboratory Results
07/02/25 07/02/25
01:18 06:00
WBC 0.2 L* Pending
Hgb 6.6 L* Pending
Hct 19.5 L* Pending
Plt Count 15 L* D Pending
PT 14.7 H
INR 1.12
APTT 30.1
Sodium 134 L Pending
Potassium 3.0 L Pending
Chloride 102 Pending
Carbon Dioxide 26 Pending
BUN 11 Pending
Creatinine 0.4 L Pending
Glucose 133 H Pending
Calcium 8.7 Pending
Total Bilirubin 0.3
AST 18
ALT 15
Alkaline Phosphatase 102
Vital Signs:
Vital Signs
Temp Pulse Resp BP Pulse Ox
98.1 F 97 16 122/64 95
07/02/25 08:15 07/02/25 08:15 07/02/25 08:15 07/02/25 08:15 07/02/25 07:00
I&O
07/01/25 07/02/25 07/03/25
06:59 06:59 05:59
Intake Total 240 / 240 250 / 250
Balance 240 / 240 250 / 250
Review of Systems
-
History Source: Patient
Constitutional: Reports No Symptoms
EENT: Reports No Symptoms Reported
Respiratory: Reports No Symptoms
Abdomen/GI: Reports No Symptoms
Breast: Reports No Symptoms
Genitourinary: Reports No Symptoms
Musculoskeletal: Reports No Symptoms
Skin: Reports No Symptoms
Neuro: Reports No Symptoms
Endocrine: Reports No Symptoms
Physical Exam
-
General: Well Developed, Well Nourished, No Apparent Distress, Comfortable and Conversant
HEENT: Normocephalic, Atraumatic, Moist Mucous Membranes and Anicteric
Respiratory: Clear to Auscultation
Cardiac: Regular Rhythm and S1/S2 (No murmur)
GI: Soft, Nontender, Nondistended and Normal Bowel Sounds
Musculoskeletal: No Clubbing, No Cyanosis and No Edema
Skin: Warm
Neuro: Awake and AO x 3
Psych: Calm and Intact Judgement/Insight
Data Reviewed
-
Labs: Labs Reviewed by me, Discussed with Physician and Discussed with Patient
Old Records: Reviewed
[2025-07-02] MEDS: LIPITOR 20 MG PO (08:25)
[2025-07-02 10:49] LABS: Hematocrit 26.1 % (37.0-47.0); Hemoglobin 8.9 g/dL (12.0-16.0); Mean Corp Hgb Conc. 34.1 g/dL (33.0-37.0); Mean Corpuscular Volume 96.0 fL (81.0-99.0); Platelet Count 14 10^3/uL (130-400); Red Cell Dist. Width 16.6 % (11.5-14.5)
[2025-07-02] MEDS: STERILE WATER FOR INJECTION 10 ML IV ×2 (10:51→17:26)
--- NOTE | 2025-07-02 11:04 | PTCARENOTE ---
Lab informed this RN of critical plt=14 and critical wbc=0.4. made aware.
--- NOTE | 2025-07-02 11:14 | CON.ONC ---
Consultation
-
Date Consultation Requested: 07/02/25
Date Consultation Performed: 07/02/25
Reason for Consultation: Neutropenic fever
Impression
Impression
Neutropenic fever
Pancytopenia status post cytotoxic chemotherapy pembrolizumab
Plan
Plan
Platelet count stable today at 14K
Transfuse for active bleeding or platelet count less than 10K
Continue antibiotic therapy for neutropenic fever
WBC 0.4 monitor CBC with differential daily
Patient History
History of Present Illness
Patient is a 74y F with PMH significant for cholangiocarcinoma on chemotherapy who presents to ED complaining of fever / chills. Patient is currently undergoing chemotherapy regimen with gemcitabine, cisplatin and Keytruda and received her most
recent dose on Friday. She received G-CSF support. She developed mild spontaneous and a repeat CBC showed platelet count less than 10K. She epistaxis she spoke with Hematology and was sent for outpatient labs. She received platelet transfusion
and subsequently developed fever. Apixaban on hold due to thrombocytopenia.
Past-Medical/Surgical History
Past Medical History
Stage IV Cholangiocarcinoma
Hypertension
Colon Cancer
Skin Cancer
Osteoporosis
Past Surgical History
Right Hemicolectomy
x 2
Skin Cancer Excision
Social History
Tobacco: Non-smoker
Alcohol: Occasional
Drug: None
Family History
Family History: Not pertinent
Patient Medication
�Medication �Instructions �Recorded �Confirmed �Last Taken �Type
diltiazem HCl 180 mg 180 mg PO HS Blood pressure 01/25/22 07/02/25 02/08/25 History
capsule,extended release 24 hr
ibandronate 150 mg tablet 150 mg PO QMONTH Osteoporosis, 02/09/25 07/02/25 Unknown History
postmenopau
atorvastatin 20 mg tablet 20 mg PO DAILY 04/27/25 07/02/25 Unknown History
apixaban 5 mg tablet (Eliquis) 5 mg PO BID 07/02/25 07/02/25 Unknown History
Active Medications
Generic Name Dose Route Start Last Admin
Trade Name Freq PRN Reason Stop Dose Admin
Acetaminophen 650 mg 07/02/25 05:16
Acetaminophen 325 Mg Tablet PO 07/30/25 05:15
Q4HPRN PRN
Mild Pain / Temp > 101
Atorvastatin Calcium 20 mg 07/02/25 08:00 07/02/25 08:25
Atorvastatin (Lipitor) 20 Mg Tablet PO 07/30/25 07:59 20 mg
DAILY SILVERIO Administration
Cefepime HCl 2,000 mg 07/02/25 10:00 07/02/25 10:51
Cefepime Hcl 2,000 Mg/12.5 Ml Vial IV 2,000 mg
Q8H SILVERIO Administration
Diltiazem HCl 180 mg 07/02/25 22:00
Diltiazem 180 Mg Extended Release (24 H) Capsule PO 07/30/25 21:59
HS SILVERIO
Vancomycin HCl 750 mg in 150 mls @ 150 mls/hr 07/02/25 18:00
Vancocin IV
Q12H SILVERIO
Sodium Chloride 0 flush 07/02/25 06:00
Sodium Chloride 0.9% (Flush) Syringe IV 07/30/25 05:59
PER PROTOCOL SILVERIO
Sterile Water 10 ml 07/02/25 10:00 07/02/25 10:51
Sterile Water For Injection 10 Ml Vial IV 07/30/25 09:59 10 ml
Q8H SILVERIO Administration
Review of Systems
-
12 point review of systems fails elicit additional complaints. She has had no recurrent fever rigors. She has had no recurrent spontaneous epistaxis or evidence of spontaneous ecchymosis.
Physical Exam
-
Physical Exam
No acute distress
HEENT: Moist mucous membranes and EOMI
Respiratory: Clear; No Wheezes, Rales or Rhonchi
Cardiac: S1/S2 and Regular Rhythm; No Murmur
GI: Soft, Non Tender, Non Distended and Normal Bowel Sounds
Musculoskeletal: No Clubbing, No Cyanosis and No Edema small area of ecchymosis over patella
Neuro: Nonfocal
Psych: Calm
Labs
Lab Results
WBC 0.4 10^3/uL (4.8-10.8) L* 07/02/25 10:25
RBC 2.72 10^6/uL (4.20-5.40) L 07/02/25 10:25
Hgb 8.9 g/dL (12.0-16.0) L D 07/02/25 10:25
Hct 26.1 % (37.0-47.0) L 07/02/25 10:25
MCV 96.0 fL (81.0-99.0) 07/02/25 10:25
MCH 32.7 pg (27.0-31.0) H 07/02/25 10:25
MCHC 34.1 g/dL (33.0-37.0) 07/02/25 10:25
RDW 16.6 % (11.5-14.5) H 07/02/25 10:25
Plt Count 14 10^3/uL (130-400) L* 07/02/25 10:25
MPV 10.2 fL (7.4-10.4) 07/02/25 10:25
Abs Immat Gran (auto) 0.0 10^3/uL (0-0.05) 07/02/25 01:18
Absolute Neuts (auto) 0.0 10^3/uL (1.4-6.5) L* 07/02/25 01:18
Absolute Lymphs (auto) 0.2 10^3/uL (1.2-3.4) L 07/02/25 01:18
Absolute Monos (auto) 0.1 10^3/uL (0.1-0.6) 07/02/25 01:18
Absolute Eos (auto) 0.0 10^3/uL (0-0.7) 07/02/25 01:18
Absolute Basos (auto) 0.0 10^3/uL (0-0.2) 07/02/25 01:18
Immature Gran % 0.0 % (0-0.5) 07/02/25 01:18
Neutrophils % 4.2 % (42.2-75.2) L 07/02/25 01:18
Lymphocytes % 70.8 % (20.5-51.1) H 07/02/25 01:18
Monocytes % 25.0 % (1.7-9.3) H 07/02/25 01:18
Eosinophils % 0.0 % (0-6) 07/02/25 01:18
Basophils % 0.0 % (0-2) 07/02/25 01:18
Creatinine 0.4 mg/dL (0.6-1.0) L 07/02/25 01:18
Vital Signs
Vital Signs
Temp Pulse Resp BP Pulse Ox
98.1 F 97 16 122/64 95
07/02/25 08:15 07/02/25 08:15 07/02/25 08:15 07/02/25 08:15 07/02/25 07:00
[2025-07-02 11:18] LABS: Blood Urea Nitrogen 9 mg/dl (7-17); Calcium 9.0 mg/dl (8.4-10.2); Carbon Dioxide 26 mmol/L (22-30); Chloride 106 mmol/L (98-107); Estimated Creatinine Clearance 79 ml/min; Glucose 117 mg/dl (70-99); Magnesium 1.4 mg/dl (1.6-2.3); Potassium 3.9 mmol/L (3.5-5.1); Sodium 138 mmol/L (135-145); eGFR > 60.00
--- NOTE | 2025-07-02 12:23 | CM ---
Initial assessment completed. Patient is a 74y F with PMH significant for cholangiocarcinoma on chemotherapy who presents to ED complaining of fever / chills.
Patient resides w/ spouse in a 2STH, 2 steps to enter from the front and from the garage. Patient is independent in all areas. Drives (+). Babysits her grandchild during the week. No DME reported. No SNF/HC hx. OP PT for shoulder 2 years ago.
Address, point of contact and insurance verified
PCP: Andres Llanos
Pharmacy: [facility]
Plan: Anticipate home, no needs
[2025-07-02] MEDS: MAGNESIUM SULFATE 100 IV (13:03)
[2025-07-02] MEDS: VANCOCIN 150 IV (17:26)
[2025-07-02 19:34] LABS: Hepatitis C Antibody Negative (Negative)
[2025-07-02] MEDS: CARDIZEM CD 180 MG PO (21:17)
[2025-07-03] MEDS: MAXIPIME 2000 MG IV ×2 (01:01→11:54)
[2025-07-03] MEDS: STERILE WATER FOR INJECTION 10 ML IV ×2 (01:01→11:53)
[2025-07-03 03:00] VITALS: BP 106/60
[2025-07-03] MEDS: VANCOCIN 150 IV (05:35)
[2025-07-03 07:00] VITALS: BP 132/71
[2025-07-03] MEDS: LIPITOR 20 MG PO (08:04)
--- NOTE | 2025-07-03 08:06 | PHA.VAN.FU ---
Vancomycin Assessment / Plan
- Assessment
Renal Function: Stable
WBC's are: Stable
In the past 24 hrs, patient has been: Afebrile
Concomitant Antimicrobials: CEFEPIME
- Dosing Plan
Continue: 750MG Q12H
- Monitoring Plan
Peak Level: 07/04 @2100
Trough Level: 07/05 @0530
- Follow Up
Pharmacy will continue to follow.
Vancomycin Follow UP
- -
Patient Age: 74
Patient Sex: Female
Vancomycin Day #: 2
Indication: Neutropenic Fever
Requesting Provider: Dr. Guerrero
Pertinent Antimicrobial Allergies:
PCNs=unknown
Height / Weight:
Height 5 ft 7 in
Actual Weight 60.47 kg
IBW in k.6
- Vital Signs / Lab Results
Temp Pulse Resp BP Pulse Ox
98.3 F 87 19 132/71 97
07/03/25 07:00 07/03/25 07:00 07/03/25 07:00 07/03/25 07:00 07/03/25 07:00
Lab Results - Hematology
07/02/25 07/02/25
01:18 10:25
WBC 0.2 L* 0.4 L*
Lab Results - Chemistry
07/02/25 07/02/25
01:18 10:25
BUN 11 9
Creatinine 0.4 L 0.4 L
Estimated Creat Clear 80 79
Albumin 3.2 L
07/02/25
01:19
Lactic Acid 1.4
Microbiology Results
07/02/25 02:14 Blood Culture - Preliminary
Blood/Venous No Growth in 24 hours- Final report to follow
07/02/25 01:18 Blood Culture - Preliminary
Blood/Venous No Growth in 24 hours- Final report to follow
07/02/25 01:18 Influenza Types A & B (KAYA) - Final
Nasal Swab Negative for Influenza A & B, NAAT
Negative results must be combined with clinical observations
and patient history.
Nucleic Acid Amplification test (NAAT)performed on the
[employer] platform.
--- NOTE | 2025-07-03 08:50 | W.PN.HOSP.TC ---
Addendum entered and electronically signed by Lisa Lorenzo MD 07/03/25 13:13:
Attending�addendum:
I saw and evaluated the patient. I reviewed the resident�s note and agree with findings and plan as documented in the resident�s note.��patient seen and examined at bedside, at bedside, denies any chest pain or shortness of breath, no
abdominal pain, no nausea, no vomiting, no diarrhea or constipation.
Patient want to be discharged home, platelet count 11.
Physical�exam:
GENERAL : Patient is awake, alert, oriented x3
HEENT: Nonicteric sclerae, PERRLA, EOMI. Oropharynx clear. Moist mucous membranes. Conjunctivae appear well perfused.
CHEST: Chest wall is nontender.
HEART: Regular rate and rhythm without murmurs.
LUNGS: Clear to auscultation bilaterally.
ABDOMEN: Soft, positive bowel sounds, nontender, no organomegaly.
RECTAL: Deferred.
MUSCLES/EXTREMITIES: No abnormal range of motion, no swelling.SKIN: No rash, no excessive bruising, petechiae, or purpura.
NEUROLOGIC: Cranial nerves II-XII intact without motor/sensory deficit.
�
Assessment/plan:
Neutropenic fever.
Improved
Continue antibiotic
07/03
No more fever.
Discharge on Levaquin/cefdinir
Pancytopenia
Status post blood transfusion.
Improved
Hyponatremia/hypokalemia/hypomagnesemia.
Replaced and continue to monitor
History of pulmonary embolism.
Eliquis on hold
Hold on discharge
CODE STATUS: Full code
DVT prophylaxis: SCDs
Diet: Regular diet
Family communication: Discussed with at bedside
Disposition: Discharge home today
�
Total time spent on today�s encounter was 51 minutes which included time spent in counseling the patient/family regarding diagnosis and treatment plan as listed above, goals of care, and symptom management. Case was discussed with nursing staff,
specialists, and care coordinators/case management. All labs and imaging personally reviewed by me. Remainder the time spent in detailed review of previous records, lab data, imaging, and other medical provider documentation.
Original Note:
Today's Communication/Plan
-
DC on levofloxacin and cefdinir for 5 days
Follow-up with hematology oncology (Dr. Pereira) tomorrow 07/04/2025
Assessment / Plan
Assessment / Plan
ASSESSMENT:
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
Peripheral vascular ultrasound lower extremities 07/02/2025: No evidence of DVT bilaterally
PLAN:
# Neutropenic fever
Absolute neutrophil count 0
S/p chemotherapy 06/24/2025. S/p G-CSF 06/28/2025.
Hematology oncology consulted.
Given IV cefepime and vancomycin during hospitalization. Plan to discharge patient on 5-day course of levofloxacin 750 mg once daily and cefdinir 300 mg twice daily.
Neutropenic precautions
# Pancytopenia secondary to chemotherapy
No active bleeding
MS/p platelet transfusion 07/01/2025 5 PM after outpatient lab work revealed platelet count 6. Repeat plt count 07/02/2025 was 14, and 11 on 07/03/25
Hem/Onc rec transfuse for active bleeding or platelet count <10K
Hgb 6.6 07/01/2025. S/p 1 unit PRBCs in the ED 07/01/2025. Repeat Hgb 8.9 07/02/2025, 8.8 07/03/2025..
WBC 0.4. Monitor CBC with differential daily.
Patient to follow-up with hematology-[facility] with [facility]. Pereira tomorrow 07/04/2025.
# Hyponatremia
# Hypokalemia
# Hypomagnesemia
Na 134, K 3.0 on 07/01/25. Replacement given in ED.
Trend BMP
Improved Na 138, K 3.9 07/02/25.
K 3.2 on 07/03/2025, potassium repleted.
Mg 1.4 07/02/2025. Will give 4 g IV over 4 hours. Repeat Mg 1.7 07/03/2025. Patient to take magnesium supplementation [id number] after discharge.
# History of pulmonary embolism�left lower lobe
Eliquis held in the setting of severe thrombocytopenia. Patient's plt count is 11, will hold Eliquis for now. Patient to follow up with Hematology-Oncology tomorrow (Dr. Pereira)
Doppler ruled out concurrent DVT. Patient started on SCDs 07/02/25
# Essential hypertension�stable
# Hyperlipidemia
Continue Cardizem with holding parameters
Continue atorvastatin
Anticipated Discharge: Today
Subjective/Interval History
-
Date of Service: July 03, 2025
Patient evaluated this morning. She was sitting up in the chair. No new complaints. Feels well. Would like to go home today.
Objective Data
-
Labs:
Laboratory Results
07/03/25
08:32
WBC Pending
Hgb Pending
Hct Pending
Plt Count Pending
Sodium Pending
Potassium Pending
Chloride Pending
Carbon Dioxide Pending
BUN Pending
Creatinine Pending
Glucose Pending
Calcium Pending
Vital Signs:
Vital Signs
Temp Pulse Resp BP Pulse Ox
98.3 F 87 19 132/71 97
07/03/25 07:00 07/03/25 07:00 07/03/25 07:00 07/03/25 07:00 07/03/25 07:00
I&O
07/02/25 07/03/25 07/04/25
06:59 05:59 06:59
Intake Total 240 / 240 1630 / 1630
Balance 240 / 240 1630 / 1630
Review of Systems
-
History Source: Patient
All other systems: Reviewed and negative
Constitutional: Reports No Symptoms
EENT: Reports No Symptoms Reported
Respiratory: Reports No Symptoms
Cardiac: Reports No Symptoms
Abdomen/GI: Reports No Symptoms
Breast: Reports No Symptoms
Genitourinary: Reports No Symptoms
Musculoskeletal: Reports No Symptoms
Physical Exam
-
General: Well Nourished, No Apparent Distress, Comfortable, Conversant and Appears Chronically Ill
HEENT: Normocephalic, Atraumatic and Moist Mucous Membranes
Respiratory: Clear to Auscultation
Cardiac: Regular Rhythm and S1/S2
GI: Soft, Nontender and Normal Bowel Sounds
Musculoskeletal: No Clubbing, No Cyanosis and No Edema
Skin: Warm
Neuro: Awake and AO x 3
Psych: Calm and Intact Judgement/Insight
Data Reviewed
-
Labs: Labs Reviewed by me and Discussed with Physician
Old Records: Reviewed
[2025-07-03 09:05] LABS: Blood Urea Nitrogen 6 mg/dl (7-17); Calcium 9.2 mg/dl (8.4-10.2); Carbon Dioxide 28 mmol/L (22-30); Chloride 102 mmol/L (98-107); Estimated Creatinine Clearance 79 ml/min; Glucose 98 mg/dl (70-99); Magnesium 1.7 mg/dl (1.6-2.3); Potassium 3.2 mmol/L (3.5-5.1); Sodium 136 mmol/L (135-145); eGFR > 60.00
[2025-07-03 09:37] LABS: Hematocrit 26.0 % (37.0-47.0); Hemoglobin 8.8 g/dL (12.0-16.0); Mean Corp Hgb Conc. 33.8 g/dL (33.0-37.0); Mean Corpuscular Volume 97.4 fL (81.0-99.0); Platelet Count 11 10^3/uL (130-400); Red Cell Dist. Width 16.8 % (11.5-14.5)
[2025-07-03 11:00] VITALS: BP 101/65
[2025-07-03 11:36] LABS: Nucleated Red Blood Cells % 0 %
[2025-07-03] MEDS: KCL 40 MEQ PO (11:54)
[2025-07-03] MEDS: MAGNESIUM OXIDE 400 MG PO (11:54)
[2025-07-03] MEDS: FLUZONE HIGH-DOSE 2025-26 0.5 ML IM (13:06)
--- NOTE | 2025-07-03 13:20 | W.DCSUMMARY ---
Addendum entered and electronically signed by Nandini Caldwell MD, Resident 07/05/25 10:40:
This serves as an addendum to add another diagnosis for patient.
# Severe protein calorie malnutrition
Addendum entered and electronically signed by Lisa Lorenzo MD 07/03/25 13:34:
Attending�addendum:
I saw and evaluated the patient. I reviewed the resident�s note and agree with findings and plan as documented in the resident�s note.��patient seen and examined at bedside, at bedside, denies any chest pain or shortness of breath, no
abdominal pain, no nausea, no vomiting, no diarrhea or constipation.
Patient want to be discharged home, platelet count 11.
Physical�exam:
GENERAL : Patient is awake, alert, oriented x3
HEENT: Nonicteric sclerae, PERRLA, EOMI. Oropharynx clear. Moist mucous membranes. Conjunctivae appear well perfused.
CHEST: Chest wall is nontender.
HEART: Regular rate and rhythm without murmurs.
LUNGS: Clear to auscultation bilaterally.
ABDOMEN: Soft, positive bowel sounds, nontender, no organomegaly.
RECTAL: Deferred.
MUSCLES/EXTREMITIES: No abnormal range of motion, no swelling.SKIN: No rash, no excessive bruising, petechiae, or purpura.
NEUROLOGIC: Cranial nerves II-XII intact without motor/sensory deficit.
�
Assessment/plan:
Neutropenic fever.
Improved
Continue antibiotic
07/03
No more fever.
Discharge on Levaquin/cefdinir
Pancytopenia
Status post blood transfusion.
Improved
Hyponatremia/hypokalemia/hypomagnesemia.
Replaced and continue to monitor
History of pulmonary embolism.
Eliquis on hold
Hold on discharge
CODE STATUS: Full code
DVT prophylaxis: SCDs
Diet: Regular diet
Family communication: Discussed with at bedside
Disposition: Discharge home today
�
Total time spent on today�s encounter was 51 minutes which included time spent in counseling the patient/family regarding diagnosis and treatment plan as listed above, goals of care, and symptom management. Case was discussed with nursing staff,
specialists, and care coordinators/case management. All labs and imaging personally reviewed by me. Remainder the time spent in detailed review of previous records, lab data, imaging, and other medical provider documentation.
Original Note:
Documented by User: Nandini Caldwell MD, Resident 07/03/25 13:25
Discharge Summary
Discharge Data
Date of Admission: 07/02/25
Date of Discharge: 07/03/25
-
Pending Results: No
Hospital Course
Discharging Physician : Dr. Lisa Lorenzo and Dr. Nandini Caldwell
Disposition : Home
Primary care physician : Dr. Andres Llanos
Principal Discharge diagnosis : Neutropenic fever, pancytopenia secondary to chemotherapy, stage IV cholangiocarcinoma, hyponatremia, hypokalemia, hypomagnesemia
Chronic Discharge diagnosis : History of pulmonary embolism, essential hypertension, hyperlipidemia
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
pancytopenia. She was treated for neutropenic fever with IV cefepime and vancomycin during hospitalization, with hematology and oncology consultation. She remained hemodynamically stable, and her symptoms improved. She was discharged on a 5-day
course of levofloxacin 750 mg daily and cefdinir 300 mg twice daily. Her pancytopenia secondary to recent chemotherapy; she received 1 unit PRBCs on 07/01/2025 for hemoglobin of 6.6-improved to 8.8 on 07/03/2025 (day of discharge). She also
received a platelet transfusion on 07/01/2025 for a platelet count of 6; platelet count increased to 14 on 07/02/2025, but dropped to 11 on 07/03/2025. Patient will follow-up with her cow rider Dr. Anaya at [email or web address] tomorrow for ongoing
management and transfusion monitoring. Electrolyte abnormalities including hyponatremia/hypokalemia/hypomagnesemia were corrected during admission. Patient has been advised to continue oral magnesium supplementation after discharge.
Anticoagulation with Eliquis for prior pulmonary embolism remains on hold due to severe thrombocytopenia. Her hypertension and hyperlipidemia remained stable. Patient to discuss when to resume Eliquis with her cow rider tomorrow. Patient
displays understanding to this plan.
Important imaging findings :
CXR 07/02/2025: No evidence of active cardiopulmonary disease.
Doppler ultrasound lower extremities 07/02/25: No evidence of deep venous thrombosis bilaterally.
Discharge Plan
-
Patient Disposition: Home (Routine Discharge)
Discharge Diagnosis/Procedures: Neutropenic fever
Pancytopenia secondary to chemotherapy
Hyponatremia
Hypokalemia
Hypomagnesemia
History of pulmonary embolism
Condition: Good
Diet: Low Sodium
Activity: As tolerated
Driving Restrictions: As prior to admission
Blood Work: CBC tomorrow at [place] 07/04/2025
Referrals:
Radha Pereira MD [Active, Oncology] - in one day
Andres Llanos DO [Family Provider, Family Practice] - in less than 1 week
Additional Discharge Medication Instructions: Please do NOT take Eliquis for now, and addressed with Dr. Pereira tomorrow. You can also obtain magnesium supplements [id number].
Prescriptions:
New
magnesium 200 mg tablet
200 mg PO DAILY Qty: 30 0RF
levofloxacin 750 mg tablet
750 mg PO DAILY Qty: 5 0RF
cefdinir 300 mg capsule
300 mg PO BID Qty: 10 0RF
Continued
diltiazem HCl 180 MG capsule,extended release 24hr
180 mg PO HS
ibandronate 150 mg Tablet
150 mg PO QMONTH
atorvastatin 20 mg Tablet
20 mg PO DAILY
Held
Eliquis 5 mg tablet
5 mg PO BID
Hold Instructions: Given platelet count is 11, we are holding Eliquis. Patient to follow-up with hematology oncology tomorrow 07/04/2025 and decide when to resume.
Discharge Orders:
Discharge Patient (As Directed); Ordered 07/03/25
Ordered By: Lisa Lorenzo
Discharge Date and Time
Print Language: JAMAICAN

Documented by User: Lisa Lorenzo MD 07/03/25 13:34
Discharge Summary
Discharge Data
Date of Admission: 07/02/25
Date of Discharge: 07/03/25
Discharge Plan
-
Patient Disposition: Home (Routine Discharge)
Discharge Diagnosis/Procedures: Neutropenic fever
Pancytopenia secondary to chemotherapy
Hyponatremia
Hypokalemia
Hypomagnesemia
History of pulmonary embolism
Condition: Good
Diet: Low Sodium
Activity: As tolerated
Driving Restrictions: As prior to admission
Blood Work: CBC tomorrow at [place] 07/04/2025
Referrals:
Radha Pereira MD [Active, Oncology] - in one day
Andres Llanos DO [Family Provider, [facility]] - in less than 1 week
Additional Discharge Medication Instructions: Please do NOT take Eliquis for now, and addressed with Dr. Pereira tomorrow. You can also obtain magnesium supplements [id number].
Prescriptions:
New
magnesium 200 mg tablet
200 mg PO DAILY Qty: 30 0RF
levofloxacin 750 mg tablet
750 mg PO DAILY Qty: 5 0RF
cefdinir 300 mg capsule
300 mg PO BID Qty: 10 0RF
Continued
diltiazem HCl 180 MG capsule,extended release 24hr
180 mg PO HS
ibandronate 150 mg Tablet
150 mg PO QMONTH
atorvastatin 20 mg Tablet
20 mg PO DAILY
Held
Eliquis 5 mg tablet
5 mg PO BID
Hold Instructions: Given platelet count is 11, we are holding Eliquis. Patient to follow-up with hematology oncology tomorrow 07/04/2025 and decide when to resume.
Discharge Orders:
Discharge Patient (As Directed); Ordered 07/03/25
Ordered By: Lisa Lorenzo
Discharge Date and Time
Print Language: JAMAICAN
--- NOTE | 2025-07-05 08:46 | PN.CDI ---
CDI
- -
CDI:
Physician Documentation Request
Admit Date: 07/02/25 03:52
Dear Doctor Paulette,
Please review the following and provide your response in the progress notes.
Clinical Indicators:
07/02 assessment and notes 'subcutaneous loss over orbital-severe, Muscle loss over buccal- severe, Temporal-severe. Unintentional weight loss: >10% in 6 months. Pt meets criteria for severe protein calorie malnutrition of chronic illness with
>10% wt loss x 6months, severe loss of subcutaneous fat (orbital) & severe loss muscle (buccal, temporal)'
Based on the above information and your assessment, which of the following most accurately represents the patient's nutritional status?
Severe protein calorie malnutrition
Other (please specify)
[place] Criteria ([facility] Hospitalist 2017)
2 or more criteria must be present for either
non severe or severe malnutrition
Note that the criteria differs related to the
presence of an acute or chronic illness
Acute Illness Chronic Illness
Energy Intake Non Severe: <75% for >7 days Non Severe: <75% for >1 month
Severe: <50% for >5 days Severe: <75% for >1 month
Weight Loss Non Severe: 1-2% over 1 week Non Severe: 5% over 1 month
5% over 1 month 7.5% over 3 months
7.5% over 3 months 10% over 6 months
1 year N/A 20% over 1 year
Severe: >2% over 1 week Severe: >5% over 1 month
>5% over 1 month >7.5% over 3 months
>7.5% over 3 months >10% over 6 months
1 year N/A >20% over 1 year
Body Fat Non Severe: Mild Decrease Non Severe: Mild Loss
Severe: Moderate Decrease Severe: Severe Loss
Muscle Mass Non Severe: Mild Decrease Non Severe: Mild Loss
Severe: Moderate Decrease Severe: Severe Loss
Fluid Accumulation Non Severe: Mild Accumulation Non Severe: Mild Accumulation
Severe: Moderate to severe Severe: Moderate to severe
accumulation accumulation
Reduced Chisel Mortiser Operator Strength Non Severe: N/A Non Severe: N/A
Severe: Measurably reduced Severe: Measurably reduced
Use of terms such as suspected, likely, concern for, or probable (associated with a specific diagnosis that is being evaluated, monitored, or treated as if it exists) are acceptable and can be coded in the inpatient setting, when documented at the
time of discharge.
Thank you,
Corinne Gonzales RN, BSN
CDI Specialist
tiger text
Please use your independent medical judgment in providing your response.
== END 2025-07-03 13:41 | disposition home or self-care (01) | DRG 808 ==
LOC: 3 WEST ACU 03:52
PROVIDERS: ADMITTING PHYSICIAN Hospitalist; ATTENDING PHYSICIAN General Practice; CONSULT PHYSICIAN Internal Medicine Hematology & Oncology; EMERGENCY PHYSICIAN Emergency Medicine; FAMILY PHYSICIAN Family Medicine
PROC: 30233N1 Transfusion of Nonautologous Red Blood Cells into Peripheral Vein, Percutaneous Approach (ICD-10-PCS; 2025-07-02)
PROC: 3E02340 Introduction of Influenza Vaccine into Muscle, Percutaneous Approach (ICD-10-PCS; 2025-07-03)
DX: D70.9 Neutropenia, unspecified (principal); E43 Unspecified severe protein-calorie malnutrition; C22.1 Intrahepatic bile duct carcinoma; E87.1 Hypo-osmolality and hyponatremia; Z11.52 Encounter for screening for COVID-19; D61.810 Antineoplastic chemotherapy induced pancytopenia; R50.81 Fever presenting with conditions classified elsewhere; E87.6 Hypokalemia; E83.42 Hypomagnesemia; Z86.711 Personal history of pulmonary embolism; I10 Essential (primary) hypertension; T45.1X5A Adverse effect of antineoplastic and immunosuppressive drugs, initial encounter; Z79.01 Long term (current) use of anticoagulants; Z79.899 Other long term (current) drug therapy; D61.811 Other drug-induced pancytopenia; Z68.20 Body mass index [BMI] 20.0-20.9, adult; Z23 Encounter for immunization
CPT/HCPCS: 71046; 80048; 80053; 81003; 81015; 83605; 83735; 85025; 85027; 85610; 85730; 86803; 86850; 86900; 86901; 86920; 87040; 87086; 87502; 87811; 90662; 93970; 96365; 96366; 96375; 99285; G0008; P9016

== ENCOUNTER → 2025-07-14 09:47 | Outpatient (REF) | payer MEDICARE, BC, SELFPAY ==
[2025-07-14 10:05] LABS: Hematocrit 32.2 % (37.0-47.0); Hemoglobin 10.2 g/dL (12.0-16.0); Mean Corp Hgb Conc. 31.7 g/dL (33.0-37.0); Mean Corpuscular Volume 104.5 fL (81.0-99.0); Platelet Count 203 10^3/uL (130-400); Red Cell Dist. Width 20.5 % (11.5-14.5)
[2025-07-14 10:57] LABS: ALT (SGPT) 14 U/L (0-35); AST (SGOT) 27 U/L (14-36); Albumin 3.8 g/dl (3.5-5.0); Alkaline Phosphatase 138 U/L (38-126); Blood Urea Nitrogen 9 mg/dl (7-17); Calcium 9.7 mg/dl (8.4-10.2); Carbon Dioxide 31 mmol/L (22-30); Chloride 102 mmol/L (98-107); Glucose 96 mg/dl (70-99); Potassium 3.7 mmol/L (3.5-5.1); Sodium 138 mmol/L (135-145); Total Protein 6.8 g/dl (6.3-8.2); eGFR > 60.00
[2025-07-14 11:26] LABS: TSH 1.22 uIU/ml (0.47-4.68)
[2025-07-14 16:52] LABS: Magnesium 1.7 mg/dl (1.6-2.3)
[2025-07-16 10:14] LABS: Total T3 (Sendout) 306 ng/dL (80-200)
== END ==
LOC: OIDL 09:47
PROVIDERS: ATTENDING PHYSICIAN Internal Medicine Hematology & Oncology; FAMILY PHYSICIAN Family Medicine
DX: N83.201 Unspecified ovarian cyst, right side (principal); C22.1 Intrahepatic bile duct carcinoma; R53.83 Other fatigue; Z13.29 Encounter for screening for other suspected endocrine disorder; Z51.12 Encounter for antineoplastic immunotherapy; I26.99 Other pulmonary embolism without acute cor pulmonale
CPT/HCPCS: 36415; 80053; 83735; 84439; 84443; 84480; 85025

== ENCOUNTER → 2025-07-21 10:04 | Outpatient (REF) | payer MEDICARE, BC, SELFPAY ==
[2025-07-21 10:52] LABS: Hematocrit 30.1 % (37.0-47.0); Hemoglobin 9.5 g/dL (12.0-16.0); Mean Corp Hgb Conc. 31.6 g/dL (33.0-37.0); Mean Corpuscular Volume 104.9 fL (81.0-99.0); Platelet Count 137 10^3/uL (130-400); Red Cell Dist. Width 19.2 % (11.5-14.5)
[2025-07-21 11:36] LABS: ALT (SGPT) 20 U/L (0-35); AST (SGOT) 29 U/L (14-36); Albumin 3.7 g/dl (3.5-5.0); Alkaline Phosphatase 101 U/L (38-126); Blood Urea Nitrogen 13 mg/dl (7-17); Calcium 9.7 mg/dl (8.4-10.2); Carbon Dioxide 31 mmol/L (22-30); Chloride 102 mmol/L (98-107); Glucose 107 mg/dl (70-99); Magnesium 1.6 mg/dl (1.6-2.3); Potassium 4.3 mmol/L (3.5-5.1); Sodium 135 mmol/L (135-145); Total Protein 6.5 g/dl (6.3-8.2); eGFR > 60.00
[2025-07-23 20:06] LABS: CA 19-9 3623 U/mL (<=35)
== END ==
LOC: OIDL 10:04
PROVIDERS: ATTENDING PHYSICIAN Internal Medicine Hematology & Oncology; FAMILY PHYSICIAN Family Medicine
DX: N83.201 Unspecified ovarian cyst, right side (principal); C22.1 Intrahepatic bile duct carcinoma; R53.83 Other fatigue; Z13.29 Encounter for screening for other suspected endocrine disorder; Z51.12 Encounter for antineoplastic immunotherapy; I26.99 Other pulmonary embolism without acute cor pulmonale
CPT/HCPCS: 36415; 80053; 83735; 85025; 86301

== ENCOUNTER → 2025-07-26 07:55 | Outpatient (REF) | payer MEDICARE, BC, SELFPAY ==
[2025-07-26 08:05] LABS: Hematocrit 31.4 % (37.0-47.0); Hemoglobin 10.1 g/dL (12.0-16.0); Mean Corp Hgb Conc. 32.2 g/dL (33.0-37.0); Mean Corpuscular Volume 106.4 fL (81.0-99.0); Platelet Count 92 10^3/uL (130-400); Red Cell Dist. Width 19.8 % (11.5-14.5)
[2025-07-26 09:31] LABS: ALT (SGPT) 20 U/L (0-35); AST (SGOT) 28 U/L (14-36); Albumin 3.9 g/dl (3.5-5.0); Alkaline Phosphatase 116 U/L (38-126); Blood Urea Nitrogen 9 mg/dl (7-17); Calcium 9.7 mg/dl (8.4-10.2); Carbon Dioxide 33 mmol/L (22-30); Chloride 103 mmol/L (98-107); Glucose 95 mg/dl (70-99); Magnesium 1.7 mg/dl (1.6-2.3); Potassium 3.6 mmol/L (3.5-5.1); Sodium 138 mmol/L (135-145); Total Protein 6.6 g/dl (6.3-8.2); eGFR > 60.00
== END ==
LOC: OIDL 07:55
PROVIDERS: ATTENDING PHYSICIAN Internal Medicine Hematology & Oncology; FAMILY PHYSICIAN Family Medicine
DX: N83.201 Unspecified ovarian cyst, right side (principal); C22.1 Intrahepatic bile duct carcinoma; R53.83 Other fatigue; Z13.29 Encounter for screening for other suspected endocrine disorder; Z51.12 Encounter for antineoplastic immunotherapy; I26.99 Other pulmonary embolism without acute cor pulmonale
CPT/HCPCS: 36415; 80053; 83735; 85025

== ENCOUNTER → 2025-08-31 08:56 | Outpatient (REF) | payer MEDICARE, BC, SELFPAY ==
[2025-08-31 09:11] LABS: Hematocrit 36.4 % (37.0-47.0); Hemoglobin 11.8 g/dL (12.0-16.0); Mean Corp Hgb Conc. 32.4 g/dL (33.0-37.0); Mean Corpuscular Volume 109.6 fL (81.0-99.0); Platelet Count 93 10^3/uL (130-400); Red Cell Dist. Width 17.0 % (11.5-14.5)
[2025-08-31 09:53] LABS: ALT (SGPT) 14 U/L (0-35); AST (SGOT) 28 U/L (14-36); Albumin 4.1 g/dl (3.5-5.0); Alkaline Phosphatase 127 U/L (38-126); Blood Urea Nitrogen 9 mg/dl (7-17); Calcium 9.6 mg/dl (8.4-10.2); Carbon Dioxide 30 mmol/L (22-30); Chloride 103 mmol/L (98-107); Glucose 93 mg/dl (70-99); Magnesium 1.5 mg/dl (1.6-2.3); Potassium 3.2 mmol/L (3.5-5.1); Sodium 139 mmol/L (135-145); Total Protein 7.0 g/dl (6.3-8.2); eGFR > 60.00
[2025-09-02 00:07] LABS: CA 19-9 5616 U/mL (<=35)
== END ==
LOC: OIDL 08:56
PROVIDERS: ATTENDING PHYSICIAN Internal Medicine Hematology & Oncology; FAMILY PHYSICIAN Family Medicine
DX: N83.201 Unspecified ovarian cyst, right side (principal); C22.1 Intrahepatic bile duct carcinoma; R53.83 Other fatigue; Z13.29 Encounter for screening for other suspected endocrine disorder; I26.99 Other pulmonary embolism without acute cor pulmonale; Z51.12 Encounter for antineoplastic immunotherapy
CPT/HCPCS: 36415; 80053; 83735; 84443; 85025; 86301